=== PATIENT | female | born 1960 | race Caucasian/White ===

== ENCOUNTER 2018-08-28 08:53 | Inpatient (IN) | payer OTHER ==
[2018-08-28 10:11] LABS: Urine Blood NEGATIVE (NEG); Urine Glucose NEGATIVE (NEG); Urine Protein NEGATIVE (NEG); Urine pH 6.5 (5.0-7.0)
[2018-08-28 10:33] LABS: Absolute Monocytes 0.8 K/uL (0.1-1.3); Absolute Neutrophil 8.2 K/uL (1.8-8.0); Eosinophils % 1.7 % (0-4.4); Lymphocytes % 17.5 % (15.3-44.8); Monocytes % 6.7 % (3.3-12.3); RBC Red Blood Cell Count 3.81 M/uL (3.86-4.86)
[2018-08-28 10:36] LABS: Protime INR 1.01
--- NOTE | 2018-08-28 11:03 | RAD REPORT ---
EXAM DESCRIPTION: RAD - Chest Single View - 08/28/2018 10:42 am CLINICAL HISTORY: ABDOMINAL DISTENTION Chest pain. COMPARISON: No comparisons FINDINGS: Portable technique limits examination quality. The lungs are grossly clear. The heart is normal in size. No displaced fractures. IMPRESSION: No acute intrathoracic process suspected.
[2018-08-28] MEDS ORDERED: MORPHINE 4 MG/ML SYR ONE (11:43)
[2018-08-28] MEDS ORDERED: ONDANSETRON 4 MG/2 ML VIAL ONE (11:43)
[2018-08-28] MEDS ORDERED: METRONIDAZOLE 500mg IVPB 500 MG/100 ML BAG IV ONE (11:43)
[2018-08-28] MEDS ORDERED: NA CHLORIDE 0.9% 500 ML ONE (11:43)
[2018-08-28] MEDS ORDERED: CIPROFLOXACIN 400mg IV 400 MG/200 ML BAG IV ONE (11:43)
[2018-08-28] MEDS ORDERED: PANTOPRAZOLE 40 MG INJ ONE ×2 (11:43→12:05)
[2018-08-28 12:06] LABS: ALT/SGPT 13 U/L (12-78); AST/SGOT 12 U/L (15-37); Albumin 3.5 g/dL (3.4-5.0); Alkaline Phosphatase 107 U/L (45-117); BUN Blood Urea Nitrogen 9 mg/dL (7-18); Bicarbonate 27 mmol/L (21-32); Bilirubin Direct 0.1 mg/dL (0-0.2); Bilirubin Total 0.5 mg/dL (0.2-1.0); Glucose Level 93 mg/dL (74-106); Lipase 67 U/L (73-393); NT PRO-BNP 180 pg/mL (<125); Potassium 3.9 mmol/L (3.5-5.1); Protein, Total 7.7 g/dL (6.4-8.2); Sodium Level 141 mmol/L (136-145); Troponin (Emerg Dept Use Only) < 0.02 ng/mL (0.0-0.045)
--- NOTE | 2018-08-28 12:10 | ER ---
Nurse's Notes [facility] Name: Annalee Sanabria Age: 58 yrs Sex: Female : 1960 Arrival Date: 08/28/2018 Time: 08:54 Bed 13 Private MD: Diagnosis: Abdominal tenderness;Diarrhea, unspecified;Nausea;Diverticular disease of intestine-hx of;Urinary tract infection, site not specified;Diverticulitis of large intestine without perforation or abscess without bleeding-sigmoid Presentation: 08/28 09:10 Presenting complaint: N/D and lower abdominal pain x 2 days. Transition of care: hb patient was not received from another setting of care. Onset of symptoms was August 27, 2018. Risk Assessment: Do you want to hurt yourself or someone else? Patient reports no desire to harm self or others. Care prior to arrival: None. 09:10 Method Of Arrival: Ambulatory 09:10 Acuity: ALIYA 3 hb Historical: - Allergies: 09:12 PENICILLINS; hb - Home Meds: 09:12 amlodipine oral [Active]; Risperdal Oral [Active]; Metformin Oral [Active]; hb - PMHx: 09:12 Hypertension; hb - PSHx: 09:12 ovarian cyst; knee - left; ; hb - Family history:: not pertinent. Screenin:10 Abuse screen: Denies threats or abuse. Denies injuries from another. Nutritional sg screening: No deficits noted. Tuberculosis screening: No symptoms or risk factors identified. Never had TB. Fall Risk None identified. Assessment: 10:10 General: Appears in no apparent distress. uncomfortable, ill, slender, well groomed, sg well developed, well nourished, Behavior is calm, cooperative, appropriate for age. Pain: Complains of pain in left upper quadrant and left lower quadrant Quality of pain is described as aching, sharp. Neuro: Level of Consciousness is awake, alert, obeys commands, Oriented to person, place, time, Associate Merchandise Planner are equal bilaterally Moves all extremities. Speech is normal, Facial symmetry appears normal, Pupils are PERRLA. Cardiovascular: Patient's skin is warm and dry. Chest pain is denied. Respiratory: Airway is patent Respiratory effort is even, unlabored, Respiratory pattern is regular, symmetrical, Breath sounds are clear. GI: Abdomen is flat, non-distended, Bowel sounds present X 4 quads. Abd is soft X 4 quads Abdomen is tender to palpation X 4 quads. : No signs and/or symptoms were reported regarding the genitourinary system. EENT: No signs and/or symptoms were reported regarding the EENT system. Derm: Skin is pink, warm \T\ dry. Musculoskeletal: Circulation, motion, and sensation intact. Range of motion: intact in all extremities, Swelling absent. 10:45 Reassessment: Luana with CT notified pt finished PO contrast. sg 13:00 Reassessment: pt requesting motrin and something for diarrhea at this time, sg notified, educated pt on the use of NSAIDs and GI disorders, pt stated understanding, awaiting a bed assignment at this time. Vital Signs: 09:12 BP 138 / 87; Pulse 86; Resp 16; Temp 98.4; Pulse Ox 100% ; Pain 8/10; hb 10:20 BP 132 / 80; Pulse 86; Resp 17; Pulse Ox 99% on R/A; sg 12:00 BP 130 / 82; Pulse 87; Resp 17; Pulse Ox 100% on R/A; Pain 10/10; sg 15:05 BP 132 / 80; Pulse 87; Resp 16; Pulse Ox 99% on R/A; Pain 8/10; sg ED Course: 08:54 Patient arrived in ED. as 09:11 Triage completed. hb 09:12 Arm band placed on. hb 09:37 Quang Mcledo MD is Attending Physician. jazz 09:44 Dudley Gonzales, VICENTA is Primary Nurse. sg 10:03 Initial lab(s) drawn, by nh, Urine collected: clean catch specimen, cloudy, fidel jb1 colored. Inserted saline lock: 20 gauge in left antecubital area, using aseptic technique. Blood collected. 10:36 EKG done, by central sterile supply technician. reviewed by Quang Mcleod MD. sm3 10:42 XRAY Chest (1 view) In Process Unspecified. EDMS 12:08 Leanna Aguiar MD is Hospitalizing Provider. jazz 12:33 CT Abd/Pelvis - W/Contrast In Process Unspecified. EDMS Administered Medications: 11:40 Drug: ProTONIX 40 mg Route: IVP; Site: left antecubital; sg 11:40 Drug: Zofran 4 mg Route: IVP; Site: left antecubital; sg 11:45 Drug: NS 0.9% 500 ml Route: IV; Rate: bolus; Site: left antecubital; sg 11:50 Drug: Cipro 400 mg Volume: 200 ml; Route: IVPB; Infused Over: 60 mins; Site: left sg antecubital; 11:50 Drug: Flagyl 500 mg Volume: 100 ml; Route: IVPB; Rate: 200 ml/hr; Infused Over: 30 sg mins; Site: left antecubital; 12:45 Not Given (Patient Refused; currently being treated for drug addiction [facility]): sg morphine 4 mg IVP once 14:00 Drug: NS 0.9% 1000 ml Route: IV; Rate: 125 ml/hr; Site: left antecubital; Outcome: 12:09 Decision to Hospitalize by Provider. jazz 15:03 Admitted to Med/surg accompanied by tech, room 229, with chart, Report called to barb Luna RN 15:03 Condition: stable 15:03 Instructed on the need for admit, safety practices, Demonstrated understanding of instructions. 15:17 Patient left the ED. Signatures: Dispatcher [employer] EDDuran Phipps [email or web address] Dudley Gonzales RN RN sg Anderson, Corey, MD MD cha Martinez, Amelia as Baxter, Heather, RN RN hb Montes, Shakira sm3
--- NOTE | 2018-08-28 12:10 | EDPHYS ---
Physician Documentation [facility] Name: Annalee Sanabria Age: 58 yrs Sex: Female : 1960 Arrival Date: 08/28/2018 Time: 08:54 Bed 13 Private MD: ED Physician Quang Mcleod HPI: 08/28 10:15 This 58 yrs old Female presents to ER via Ambulatory with complaints of jazz Abdominal Pain. 10:15 The patient presents with abdominal pain in the lower abdomen, in the left upper jazz quadrant, in the left lower quadrant, abdominal distention in the upper abdomen, in the lower abdomen. Onset: The symptoms/episode began/occurred 2 day(s) ago. The patient presents to the emergency department with rectal bleeding, bright red blood with bowel movement, melena. Onset: The symptoms/episode began/occurred 2 day(s) ago. Abdominal pain: none is appreciated. Modifying factors: The symptoms are alleviated by remaining still, the symptoms are aggravated by movement, pressure. Associated signs and symptoms: The patient has no apparent associated signs or symptoms. Associated signs and symptoms: none. Modifying factors: The symptoms are alleviated by nothing, the symptoms are aggravated by touching the area, walking. Historical: - Allergies: 09:12 PENICILLINS; hb - Home Meds: 09:12 amlodipine oral [Active]; Risperdal Oral [Active]; Metformin Oral [Active]; hb - PMHx: 09:12 Hypertension; hb - PSHx: 09:12 ovarian cyst; knee - left; ; hb - Family history:: not pertinent. ROS: 10:15 Constitutional: Negative for fever, chills, and weight loss, Eyes: Negative for injury, jazz pain, redness, and discharge, ENT: Negative for injury, pain, and discharge, Neck: Negative for injury, pain, and swelling, Cardiovascular: Negative for chest pain, palpitations, and edema, Respiratory: Negative for shortness of breath, cough, wheezing, and pleuritic chest pain, Back: Negative for injury and pain, : Negative for injury, bleeding, discharge, and swelling, MS/Extremity: Negative for injury and deformity, Skin: Negative for injury, rash, and discoloration, Neuro: Negative for headache, weakness, numbness, tingling, and seizure, Psych: Negative for depression, anxiety, suicide ideation, homicidal ideation, and hallucinations, Allergy/Immunology: Negative for hives, rash, and allergies, Endocrine: Negative for neck swelling, polydipsia, polyuria, polyphagia, and marked weight changes, Hematologic/Lymphatic: Negative for swollen nodes, abnormal bleeding, and unusual bruising. 10:15 Abdomen/GI: Positive for abdominal pain, abdominal cramps, abdominal distension, rectal pain. Exam: 10:15 Constitutional: This is a well developed, well nourished patient who is awake, alert, jazz and in no acute distress. Head/Face: Normocephalic, atraumatic. Eyes: Pupils equal round and reactive to light, extra-ocular motions intact. Lids and lashes normal. Conjunctiva and sclera are non-icteric and not injected. Cornea within normal limits. Periorbital areas with no swelling, redness, or edema. ENT: Nares patent. No nasal discharge, no septal abnormalities noted. Tympanic membranes are normal and external auditory canals are clear. Oropharynx with no redness, swelling, or masses, exudates, or evidence of obstruction, uvula midline. Mucous membranes moist. Neck: Trachea midline, no thyromegaly or masses palpated, and no cervical lymphadenopathy. Supple, full range of motion without nuchal rigidity, or vertebral point tenderness. No Meningismus. Chest/axilla: Normal chest wall appearance and motion. Nontender with no deformity. No lesions are appreciated. Cardiovascular: Regular rate and rhythm with a normal S1 and S2. No gallops, murmurs, or rubs. Normal PMI, no JVD. No pulse deficits. Respiratory: Lungs have equal breath sounds bilaterally, clear to auscultation and percussion. No rales, rhonchi or wheezes noted. No increased work of breathing, no retractions or nasal flaring. Back: No spinal tenderness. No costovertebral tenderness. Full range of motion. Female : Normal external genitalia. Skin: Warm, dry with normal turgor. Normal color with no rashes, no lesions, and no evidence of cellulitis. MS/ Extremity: Pulses equal, no cyanosis. Neurovascular intact. Full, normal range of motion. Neuro: Awake and alert, GCS 15, oriented to person, place, time, and situation. Cranial nerves II-XII grossly intact. Motor strength 5/5 in all extremities. Sensory grossly intact. Cerebellar exam normal. Normal gait. Psych: Awake, alert, with orientation to person, place and time. Behavior, mood, and affect are within normal limits. 10:15 Abdomen/GI: Inspection: abdomen appears normal, Bowel sounds: normal, Palpation: mild abdominal tenderness, moderate abdominal tenderness, in the left upper quadrant and left lower quadrant, Liver: no appreciated palpable abnormalities, Hernia: not appreciated. 12:06 Abdomen/GI: Rectal exam: rectal tone normal, Stool: guaiac negative, hemorrhoid(s), are jazz not appreciated, mass, is not appreciated, swelling, is not appreciated, tenderness, is not appreciated. Vital Signs: 09:12 BP 138 / 87; Pulse 86; Resp 16; Temp 98.4; Pulse Ox 100% ; Pain 8/10; hb 10:20 BP 132 / 80; Pulse 86; Resp 17; Pulse Ox 99% on R/A; sg 12:00 BP 130 / 82; Pulse 87; Resp 17; Pulse Ox 100% on R/A; Pain 10/10; sg 15:05 BP 132 / 80; Pulse 87; Resp 16; Pulse Ox 99% on R/A; Pain 8/10; sg MDM: 09:37 Patient medically screened. [facility] 10:17 Data reviewed: vital signs, nurses notes, lab test result(s), EKG, radiologic studies, [facility] CT scan, plain films. 08/28 10:06 Order name: Urine Dipstick--Ancillary (enter results); Complete Time: 10:12 08/28 10:14 Order name: Basic Metabolic Panel; Complete Time: 13:12 [facility] 08/28 10:14 Order name: CBC with Diff; Complete Time: 11:59 [facility] 08/28 10:14 Order name: LFT's; Complete Time: 13:12 [facility] 08/28 10:14 Order name: Magnesium; Complete Time: 13:12 [facility] 08/28 10:14 Order name: NT PRO-BNP; Complete Time: 13:12 [facility] 08/28 10:14 Order name: PT-INR; Complete Time: 11:59 [facility] 08/28 10:14 Order name: Troponin (emerg Dept Use Only); Complete Time: 13:12 [facility] 08/28 10:14 Order name: XRAY Chest (1 view); Complete Time: 11:59 [facility] 08/28 10:14 Order name: Lipase; Complete Time: 13:12 [facility] 08/28 10:14 Order name: Type And Screen; Complete Time: 11:59 [facility] 08/28 10:14 Order name: CT Abd/Pelvis - W/Contrast; Complete Time: 13:12 [facility] 08/28 11:54 Order name: ABO/RH no charge; Complete Time: 11:59 EDMS 08/28 12:08 Order name: Occult Blood--Ancillary 08/28 10:14 Order name: EKG; Complete Time: 10:15 [facility] 08/28 10:14 Order name: Cardiac monitoring; Complete Time: 10:15 [facility] 08/28 10:14 Order name: EKG - Nurse/Tech; Complete Time: 11:39 [facility] 08/28 10:14 Order name: IV Saline Lock; Complete Time: 10:15 [facility] 08/28 10:14 Order name: Labs collected and sent; Complete Time: 10:15 [facility] 08/28 10:14 Order name: O2 Per Protocol; Complete Time: 10:15 [facility] 08/28 10:14 Order name: O2 Sat Monitoring; Complete Time: 10:15 [facility] Administered Medications: 11:40 Drug: ProTONIX 40 mg Route: IVP; Site: left antecubital; sg 11:40 Drug: Zofran 4 mg Route: IVP; Site: left antecubital; sg 11:45 Drug: NS 0.9% 500 ml Route: IV; Rate: bolus; Site: left antecubital; sg 11:50 Drug: Cipro 400 mg Volume: 200 ml; Route: IVPB; Infused Over: 60 mins; Site: left sg antecubital; 11:50 Drug: Flagyl 500 mg Volume: 100 ml; Route: IVPB; Rate: 200 ml/hr; Infused Over: 30 sg mins; Site: left antecubital; 12:45 Not Given (Patient Refused; currently being treated for drug addiction [facility]): sg morphine 4 mg IVP once 14:00 Drug: NS 0.9% 1000 ml Route: IV; Rate: 125 ml/hr; Site: left antecubital; sg Disposition: 08/28/18 12:09 Hospitalization ordered by Leanna Aguiar for Inpatient Admission. Preliminary diagnosis are Abdominal tenderness, Diarrhea, unspecified, Nausea, Diverticular disease of intestine - hx of, Urinary tract infection, site not specified, Diverticulitis of large intestine without perforation or abscess without bleeding - sigmoid. - Bed requested for Telemetry/MedSurg (Inpatient). - Status is Inpatient Admission. sg - Condition is Stable. - Problem is new. - Symptoms have improved. UTI on Admission? Yes Signatures: Dispatcher [employer] Chloe Guzman RN RN dw Gay, Steven, RN RN sg Anderson, Corey, MD MD cha Baxter, Heather, RN RN Corrections: (The following items were deleted from the chart) 13:13 12:09 Hospitalization Ordered by Leanna Aguiar MD for Inpatient Admission. Preliminary [facility] diagnosis is Abdominal tenderness; Diarrhea, unspecified; Nausea; Diverticular disease of intestine - hx of; Urinary tract infection, site not specified. Bed requested for Telemetry/MedSurg (Inpatient). Status is Inpatient Admission. Condition is Stable. Problem is new. Symptoms have improved. UTI on Admission? Yes. [facility] 14:12 13:13 08/28/2018 12:09 Hospitalization Ordered by Leanna Aguiar MD for Inpatient dw Admission. Preliminary diagnosis is Abdominal tenderness; Diarrhea, unspecified; Nausea; Diverticular disease of intestine - hx of; Urinary tract infection, site not specified; Diverticulitis of large intestine without perforation or abscess without bleeding - sigmoid. Bed requested for Telemetry/MedSurg (Inpatient). Status is Inpatient Admission. Condition is Stable. Problem is new. Symptoms have improved. UTI on Admission? Yes. [facility] 15:17 14:12 08/28/2018 12:09 Hospitalization Ordered by Leanna Aguiar MD for Inpatient sg Admission. Preliminary diagnosis is Abdominal tenderness; Diarrhea, unspecified; Nausea; Diverticular disease of intestine - hx of; Urinary tract infection, site not specified; Diverticulitis of large intestine without perforation or abscess without bleeding - sigmoid. Bed requested for Telemetry/MedSurg (Inpatient). Status is Inpatient Admission. Condition is Stable. Problem is new. Symptoms have improved. UTI on Admission? Yes.
--- NOTE | 2018-08-28 12:15 | EKG ---
Test Date: 2018-08-28 Test Time: 10:20:58 Logistics Planning Manager: DAMIÁN MEASUREMENT RESULTS: Intervals: Rate: 68 NE: 134 QRSD: 94 QT: 404 QTc: 429 [place]: P: 19 NE: 134 QRS: 63 T: 55 INTERPRETIVE STATEMENTS: Normal sinus rhythm Normal ECG No previous ECG available for comparison Electronically Signed On 08-28-18 12:14:23 CDT by Adam Rivas
--- NOTE | 2018-08-28 12:45 | RAD REPORT ---
EXAM DESCRIPTION: CTAbdomen Pelvis W Contrast - 08/28/2018 12:33 pm CLINICAL HISTORY: Abdominal pain. ABD PAIN COMPARISON: No comparisons TECHNIQUE: Biphasic CT imaging of the abdomen and pelvis was performed with 100 ml non-ionic IV cont rast. All CT scans are performed using dose optimization technique as appropriate and may include automated exposure control or mA/KV adjustment according to patient size. FINDINGS: The lung bases are clear. The liver, spleen, pancreas, adrenal glands and kidneys are within normal limits. No bowel obstruction, free air, free fluid or abscess. Prominent sigmoid diverticulosis is seen. Ther e is mild perihilar colonic inflammatory changes seen in the left lower quadrant surrounding the sigm oid colon compatible with mild/early acute diverticulitis. No peridiverticular abscess. The appendix is normal. No evidence of significant lymphadenopathy. No suspicious bony findings. IMPRESSION: Mild/early acute sigmoid diverticulitis is seen in the left lower quadrant.
[2018-08-28] MEDS ORDERED: NA CHLORIDE 0.9% 1,000 ML ONE (15:21)
[2018-08-28] MEDS ORDERED: ONDANSETRON 4 MG/2 ML VIAL IV PRN (15:44)
[2018-08-28] MEDS ORDERED: NA CHLORIDE 0.9% 1,000 ML IV SCH (15:44)
[2018-08-28] MEDS: INSULIN -REGULAR HUMAN 50 UNIT/0.5 ML ML SQ SCH ×2 (16:30→20:26)
[2018-08-28] MEDS: D5 0.45 NS 1,000 ML IV SCH (17:38)
--- NOTE | 2018-08-28 18:01 | P.HP ---
Certification for Inpatient Patient admitted to: Inpatient With expected LOS: >2 Midnights Practitioner: I am a practitioner with admitting privileges, knowledge of patient current condition, hospital course, and medical plan of care. Services: Services provided to patient in accordance with Admission requirements found in Title 42 Section 412.3 of the Code of Federal Regulations Patient History Date of Service: 08/28/18 Reason for admission: Diverticulitis History of Present Illness: This is a 58-year-old female with history of hypertension, diabetes type 2, bipolar, depression, paranoia, fibromyalgia admitted for abdominal pain for the past 4 days. Per patient, she started with abdominal pain 4600, along with black stools 2 days ago. The pain got worse last night. She also complains of diarrhea for the past 4 days. States that initially she had bright red blood, which now transition to black stools for the past 2 days. Also states that she was confused last night because she thinks she lost a lot of blood and she was feeling thirsty and had some chills. Endorsing some headache along with nausea. Denies any chest pain, shortness of breath, vision changes, speech changes or dizziness. She could not get any relief in the pain was so worse that she had to come to the ER. In the ER, her vital signs were stable at blood pressure of 138/87, pulse of 86, respirations of 16. She was noted to be afebrile at 98.4. Her labs were fairly unremarkable. Her CT of the abdomen showed early sigmoid diverticulitis in left lower quadrant. Chest x-ray was negative for any acute abnormalities. She received IV fluids, ciprofloxacin and Flagyl. At the time of my exam, she was alert oriented x3, in mild to moderate distress due to abdominal pain, hemodynamically stable. She stated that she had a headache because her blood sugars were so low because she is a diabetic and has not eating anything Allergies Penicillins Allergy (Verified 08/28/18 15:32) Rash Home Medications: Duloxetine [Cymbalta *] 20 mg PO BID 08/28/18 Lisinopril 10 mg PO DAILY 08/28/18 Metformin HCl 1,000 mg PO BID 08/28/18 risperiDONE [Risperidone] 1 mg PO DAILY 08/28/18 - Past Medical/Surgical History Has patient received pneumonia vaccine in the past: Yes Diabetic: Yes -: Genital Herpes -: Hypertension -: Diabetes -: Asthma -: Coccaine Abuse -: Ovarian cyst surgery -: Left Knee surgery -: Section - Family History Mother -: Heart disease, Hypertension, Diabetes, Kidney disease, Other (see notes) Notes: Edema, Gangrene - Social History Smoking Status: Current every day smoker Alcohol use: Yes CD- Drugs: Yes Caffeine use: Yes Review of Systems 10-point ROS is otherwise unremarkable Physical Examination - Vital Signs Temperature: 98.4 F Blood Pressure: 121/62 Pulse: 73 Respirations: 16 Pulse Ox (%): 98 - Physical Exam General: Alert, In no apparent distress, Oriented x3 HEENT: Atraumatic, PERRLA, Mucous membr. moist/pink, EOMI, Sclerae nonicteric Neck: Supple, 2+ carotid pulse no bruit, No LAD, Without JVD or thyroid abnormality Respiratory: Clear to auscultation bilaterally, Normal air movement Cardiovascular: Regular rate/rhythm, Normal S1 S2 Gastrointestinal: Normal bowel sounds, Non-distended, Rigidity, Tenderness Musculoskeletal: No tenderness Integumentary: No rashes Neurological: Normal speech, Normal strength at 5/5 x4 extr, Normal tone, Normal affect Lymphatics: No axilla or inguinal lymphadenopathy - Studies Laboratory Data (last 24 hrs) 08/28/18 10:00: PT 11.9, INR 1.01 08/28/18 10:00: WBC 11.2 H, Hgb 11.9 L, Hct 36.0, Plt Count 316 08/28/18 10:00: Sodium 141, Potassium 3.9, BUN 9, Creatinine 0.77, Glucose 93, Magnesium 2.0, Total Bilirubin 0.5, AST 12 L, ALT 13, Alkaline Phosphatase 107, Lipase 67 L Microbiology Data (last 24 hrs): 08/28/18 12:08 Stool Occult Blood - Final Assessment and Plan - Plan This is a 58-year-old female with: Sigmoid diverticulitis of left lower quadrant Keep NPO, IV analgesia, IV antibiotics IV fluids with D5 half-normal saline Abnormal urinalysis Pending cultures Currently on IV ciprofloxacin, which will provide coverage for now. Will make adjustments once cultures are back Melena Stool culture reported to be negative in the ER. H&H stable Will continue to monitor Hypertension Stable Will continue home medications [id number] diabetes mellitus type 2 Will continue home medications as tolerated Asthma Bipolar Paranoia Depression Neuropathy Fibromyalgia DVT prophylaxis: Lovenox GI prophylaxis: None Diet: Diabetic Disposition: Admit to floor. Pending symptomatic improvement Discharge Plan: Home - Advance Directives Does patient have a Living Will: No Does patient have a Durable POA for Healthcare: No Time Spent Managing Pts Care (In Minutes): 55
[2018-08-28] MEDS: CIPROFLOXACIN 400mg IV 400 MG/200 ML BAG IV SCH (20:20)
[2018-08-28] MEDS ORDERED: DULOXETINE 20 MG CAP PO SCH (21:00)
[2018-08-29] MEDS: METRONIDAZOLE 500mg IVPB 500 MG/100 ML BAG IV SCH ×3 (00:21→17:05)
[2018-08-29] MEDS: D5 0.45 NS 1,000 ML IV SCH ×2 (05:13→14:00)
[2018-08-29 05:21] LABS: Absolute Lymphocytes (CBC) 2.4 K/uL (0.7-4.9); Absolute Monocytes 0.8 K/uL (0.1-1.3); Absolute Neutrophil 5.7 K/uL (1.8-8.0); Basophils % 0.8 % (0-1.3); Eosinophils % 2.8 % (0-4.4); Lymphocytes % 25.8 % (15.3-44.8); Monocytes % 8.4 % (3.3-12.3)
[2018-08-29 05:42] LABS: Bilirubin Total 0.7 mg/dL (0.2-1.0); Protein, Total 6.9 g/dL (6.4-8.2)
[2018-08-29] MEDS: INSULIN -REGULAR HUMAN 50 UNIT/0.5 ML ML SQ SCH ×4 (07:30→20:36)
[2018-08-29] MEDS: ENOXAPARIN 40 MG/0.4 ML SQ SCH (09:05)
[2018-08-29] MEDS: CIPROFLOXACIN 400mg IV 400 MG/200 ML BAG IV SCH ×2 (09:05→20:47)
[2018-08-29 10:26] LABS: Urine Appearance CLEAR; Urine Bilirubin NEGATIVE (NEG); Urine Blood NEGATIVE (NEG); Urine Color YELLOW; Urine Glucose NEGATIVE (NEG); Urine Protein NEGATIVE (NEG); Urine Specific Gravity <=1.005 (1.005-1.030); Urine Urobilinogen 0.2 mg/dL (0.2-1.0); Urine pH 6.5 (5.0-7.0)
[2018-08-29 10:41] LABS: Urine Microscopic Reflex NO UMIC
[2018-08-29] MEDS: DULOXETINE 20 MG CAP PO SCH (11:19)
[2018-08-29] MEDS: LISINOPRIL 10 MG TAB PO SCH (11:19)
[2018-08-29] MEDS: RISPERIDONE 1 MG TABLET PO SCH (11:19)
[2018-08-29] MEDS ORDERED: HYDROCODONE/APAP 5/325 MG TAB PO PRN (16:17)
[2018-08-29] MEDS ORDERED: GLUCAGON 1 MG/VIAL IM PRN (16:27)
[2018-08-29] MEDS ORDERED: D50W 25 GM/50 ML SYRINGE IV PRN (16:27)
--- NOTE | 2018-08-29 21:00 | PN ---
Date of Progress Note: 08/29/2018 Subjective: The patient seen and examined. Chart reviewed and case discussed with RN. The patient is still having significant amount of pain. Has had some nausea, but no vomiting. Medications: List reviewed. Physical Examination: Vital Signs: Temperature 99.7, heart rate 65, blood pressure 127/59, respirations 16, O2 99% on room air. General: Awake, alert, oriented x3, in some mild distress, ill-appearing female. CV: S1, S2. No murmurs. Regular rate and rhythm. Peripheral pulses present. Respiratory: Moving air well bilaterally. No wheezing or stridor. Gastrointestinal: Abdomen is soft. Tenderness to palpation in the epigastric region. No rebound or guarding. Bowel sounds hypoactive. Extremities: No clubbing, cyanosis, or edema. Neurologic: Nonfocal. Laboratory Data: Sodium 141, potassium 4, chloride 110, CO2 28, BUN 5, creatinine 0.74, glucose 117, calcium 8.3, albumin 3. WBC 9.2, H and H 11.2 and 34, platelets 301. Occult blood is negative. St ool cultures pending. Assessment And Plan: A 58-year-old female with: 1.Sigmoid diverticulitis of the left lower quadrant. We will start on clear liquid diet. Continue with IV antibiotics and IV pain medications. 2.Abnormal urinalysis. No symptoms. Currently, the patient is being covered with IV antibiotics du e to diverticulitis. Follow up on cultures. 3.Melena. Hemoccult blood is negative. Hemoglobin and hematocrit are stable. We will continue to monitor. Unfortunately, no GI is available for consultation. 4.Essential hypertension, stable. We will continue with home medications as appropriate. 5.Diabetes mellitus type 2 qef-bmgwrda-hzbzjjgfv with hyperglycemia. Continue Accu-Cheks and monito r blood glucose levels with sliding scale insulin. 6.Cover with sliding scale insulin. 7.Asthma, intermittent. Use albuterol p.r.n. 8.Bipolar disorder. We will resume home medications. 9.Major depressive disorder. 10.Neuropathy. 11.Fibromyalgia. Plan: Restart home medications as appropriate. Advance diet. Continue IV antibiotics. Likely disc harge in the next 24-48 hours. SA/MODL Voice ID: [id number] Report ID: [id number]
[2018-08-30] MEDS: METRONIDAZOLE 500mg IVPB 500 MG/100 ML BAG IV SCH ×3 (00:30→16:55)
[2018-08-30] MEDS: D5 0.45 NS 1,000 ML IV SCH ×2 (00:30→10:00)
[2018-08-30 06:09] LABS: BUN Blood Urea Nitrogen 3 mg/dL (7-18); Bicarbonate 28 mmol/L (21-32); Glucose Level 127 mg/dL (74-106); Phosphorus 3.2 mg/dL (2.5-4.9); Potassium 3.9 mmol/L (3.5-5.1); Sodium Level 141 mmol/L (136-145)
[2018-08-30 06:13] LABS: Absolute Lymphocytes (CBC) 2.2 K/uL (0.7-4.9); Absolute Monocytes 0.6 K/uL (0.1-1.3); Absolute Neutrophil 3.3 K/uL (1.8-8.0); Basophils % 1.2 % (0-1.3); Eosinophils % 4.6 % (0-4.4); Hematocrit 33.5 % (36.0-45.0); Lymphocytes % 33.5 % (15.3-44.8); MPV 9.4 fL (7.6-11.3); Monocytes % 8.8 % (3.3-12.3); RBC Red Blood Cell Count 3.52 M/uL (3.86-4.86)
[2018-08-30] MEDS: INSULIN -REGULAR HUMAN 50 UNIT/0.5 ML ML SQ SCH ×4 (07:30→21:00)
[2018-08-30] MEDS ORDERED: POTASSIUM CL SA 10 MEQ TAB PO ONE (09:00)
[2018-08-30] MEDS: DULOXETINE 20 MG CAP PO SCH (09:42)
[2018-08-30] MEDS: CIPROFLOXACIN 400mg IV 400 MG/200 ML BAG IV SCH ×2 (09:42→21:31)
[2018-08-30] MEDS: RISPERIDONE 1 MG TABLET PO SCH (09:42)
[2018-08-30] MEDS: LISINOPRIL 10 MG TAB PO SCH (09:43)
[2018-08-30] MEDS: ENOXAPARIN 40 MG/0.4 ML SQ SCH (10:19)
--- NOTE | 2018-08-30 17:43 | PN ---
Date of Progress Note: 08/30/2018 Subjective: The patient seen and examined, chart reviewed and case discussed with RN. The patient s tates her pain is better, however, not completely resolved. Did have some nausea with liquid diet. Medications: List reviewed. Objective: Vital Signs: Temperature 97.6, heart rate 66, blood pressure 114/62, respirations 15, O2 99% on room air. GENERAL: Awake, alert, oriented x3, in some mild distress, ill-appearing female. CV: S1, S2. Regular rate and rhythm. Peripheral pulses present. Respiratory: Moving air well bilaterally. No wheezing or stridor. Gastrointestinal: Abdomen is soft. Mild tenderness to palpation. No guarding or rigidity, improved from yesterday. Bowel sounds positive. Extremities: No clubbing, cyanosis, or edema. Neurologic: Nonfocal. Laboratory Data: Sodium 141, potassium 3.9 chloride 109, CO2 28, BUN 3, creatinine 0.63, glucose 127 , calcium 8.2, phosphorus 3.2. WBC 6.4, H and H 10.9 and 33.5, platelets 306. Stool occult blood is negative. Stool cultures pending. Assessment: A 58-year-old female with: 1.Sigmoid diverticulitis, left lower quadrant. We will advance diet as tolerated. Pain has improve d. Continue intravenous antibiotics and intravenous analgesia. Encourage ambulation. 2.Abnormal urinalysis. Doubt urinary tract infection. No culture triggered. 3.Melena. Hemoccult blood negative. H and H remains stable at this time. We will continue to [facility]. No further bloody stools. The patient will need outpatient Gastroenterology followup. 4.Essential hypertension, stable. We will continue with home medications as appropriate. 5.Diabetes mellitus type 2, yly-gzbgtsz-qtrzftaof with hyperglycemia. Continue Accu-Cheks and monit or blood glucose levels with sliding scale insulin. Blood glucose levels have been ranging from 145 to 127. 6.Intermittent asthma. We will use albuterol p.r.n. 7.Bipolar disorder, stable, on home medications. 8.Major depressive disorder, single episode. Currently in remission. Continue SSRI. 9.Neuropathy. 10.Fibromyalgia. 11.Deep venous thrombosis prophylaxis with sequential compression devices. No chemical anticoagulat ion due to melena. Plan: Encourage ambulation. We will have PT consultation. DC Lovenox. Place on SCDs. Likely disc harge in the next 24 hours if tolerates diet. Outpatient GI followup. /MARIZA Voice ID: [id number] Report ID: [id number]
[2018-08-31] MEDS: METRONIDAZOLE 500mg IVPB 500 MG/100 ML BAG IV SCH ×2 (00:22→09:04)
[2018-08-31 06:01] LABS: Absolute Lymphocytes (CBC) 2.2 K/uL (0.7-4.9); Absolute Monocytes 0.6 K/uL (0.1-1.3); Absolute Neutrophil 3.3 K/uL (1.8-8.0); Basophils % 1.1 % (0-1.3); Eosinophils % 5.7 % (0-4.4); Hematocrit 33.3 % (36.0-45.0); MPV 9.1 fL (7.6-11.3); Monocytes % 8.8 % (3.3-12.3); RBC Red Blood Cell Count 3.52 M/uL (3.86-4.86)
[2018-08-31 06:22] LABS: Potassium 3.7 mmol/L (3.5-5.1)
[2018-08-31] MEDS: INSULIN -REGULAR HUMAN 50 UNIT/0.5 ML ML SQ SCH ×2 (07:30→11:30)
[2018-08-31] MEDS ORDERED: POTASSIUM CL SA 10 MEQ TAB PO ONE (09:00)
[2018-08-31] MEDS: CIPROFLOXACIN 400mg IV 400 MG/200 ML BAG IV SCH (09:04)
[2018-08-31] MEDS: DULOXETINE 20 MG CAP PO SCH (09:04)
[2018-08-31] MEDS: LISINOPRIL 10 MG TAB PO SCH (09:05)
[2018-08-31] MEDS: RISPERIDONE 1 MG TABLET PO SCH (09:06)
[2018-08-31] MEDS ORDERED: NA CHLORIDE 0.9% 250 ML ONE (09:22)
--- NOTE | 2018-09-01 03:25 | DS ---
Date of Discharge: 08/31/2018 Admitting Diagnoses: 1. Sigmoid diverticulitis, left lower quadrant, acute. 2. Abnormal UA. 3. Melena. 4. Essential hypertension. 5. Noninsulin-dependent diabetes with hyperglycemia. 6. Intermittent asthma. 7. Bipolar disorder. 8. Major depressive disorder, single episode, currently in remission. 9. Neuropathy. 10. Fibromyalgia. Discharge Diagnoses: 1. Sigmoid diverticulitis, acute, left lower quadrant. 2. Abnormal UA, culture negative. 3. Melena, resolved. 4. Essential hypertension, stable. 5. Diabetes mellitus type 2, sio-igjiuyr-dagyajmoz, with hyperglycemia. 6. Intermittent asthma, stable. 7. Bipolar disorder, stable. 8. Major depressive disorder, single episode, currently in remission. 9. Neuropathy. 10. Fibromyalgia. Hospital Course: The patient is a 58-year-old female with hypertension, diabetes, bipolar disorder, depression, fibromyalgia, comes in with abdominal pain. The patient has had GI workup done in the past and she was found to have acute sigmoid diverticulitis. She had some nausea, vomiting as well. The patient's abdominal pain was addressed. She was kept n.p.o., started on IV fluids. The patient was also started on IV antibiotics. Cultures were obtained. Stool cultures are pending. Hemoccult was negative. She did have melenic stool at home. No further melenic stools in the hospital. The patient did have an abnormal UA with trace leukocyte esterase, however, was not felt to be UTI. There was no dysuria or other symptoms regardless the patient was being covered with IV antibiotics. The patient did well over the course of the hospital stay. She did have slow recovery and initially did not tolerate advancing her diet. However, with antibiotics, time, and improvement, she was able to tolerate a GI soft diet. The patient states that she has had multiple bouts of diverticulitis. She will need surgical evaluation as an outpatient for possible elective surgery to prevent further bouts of diverticulitis. The patient was then doing better. She was able to ambulate, tolerate her diet, did not have any further abdominal pain. She was not throwing up her foods, able to tolerate her diet. She was afebrile. There were no signs of sepsis. Her WBC count had normalized. Her electrolytes were within normal limits. The patient was then cleared for discharge and was sent home in a stable condition. Finish up course of antibiotics. Medications: As per medication reconciliation list. Followup: Follow up with primary care physician in 2-3 days. Follow up with GI in 2 weeks. Return to ER for worsening condition. Follow up with general surgeon for possible elective surgery of the diverticulitis in the future. Diet: Wilber. Activity: As tolerated. Physical Examination: General: Awake, alert, oriented x3. No acute distress. CV: S1, S2. No murmurs. Respiratory: Moving air well bilaterally. No wheezing. Abdomen: Soft, nontender, nondistended. Positive bowel sounds. Extremities: No clubbing, cyanosis, or edema. Neurologic: Nonfocal. Total time spent discharging the patient was 34 minutes. /MARIZA Voice ID: [id number] Report ID: [id number]
== END 2018-08-31 13:02 | disposition home or self-care (01) | DRG 379 ==
LOC: ER 08:53 → ERHOLD 12:59 → 2ND 15:05
PROVIDERS: ADMIT Family Medicine; ATTEND Family Medicine
DX: K57.33 Diverticulitis of large intestine without perforation or abscess with bleeding (principal); R82.998 Other abnormal findings in urine; I10 Essential (primary) hypertension; E11.65 Type 2 diabetes mellitus with hyperglycemia; J45.20 Mild intermittent asthma, uncomplicated; F32.5 Major depressive disorder, single episode, in full remission; G62.9 Polyneuropathy, unspecified; M79.7 Fibromyalgia; Z88.0 Allergy status to penicillin
CPT/HCPCS: 36415; 71045; 74177; 80048; 80053; 80076; 81003; 82272; 82962; 83690; 83735; 83880; 84100; 84484; 85025; 85610; 86850; 86900; 86901; 87045; 87046; 93005; 94760; 96374; 96375; 97161; 99285; C9113; J0744; J1650; J2405; J7030; Q9967

== ENCOUNTER 2018-09-07 13:27 | Emergency (ER) | payer OTHER ==
--- OUTSIDE RECORDS SUMMARY | 2018-09-07 13:29 | XMS REPORT ---
:1960 [facility] [address] [place] [address] [place] [id number] Care Team Providers Name Role Phone TABATHA RODNEY Primary Care Provider Unavailable Problems This patient has no known problems. Allergies, Adverse Reactions, Alerts This patient has no known allergies or adverse reactions. Medications This patient has no known medications. Encounters Start End Encounter Admission Attending Care Care Encounter Date/Time Date/Time Type Type Clinicians Facility Department ID 2016-10-18 Inpatient [facility] [id number] 19:12:00 2017-05-01 2017-05-01 Emergency [facility] [id number] 02:20:07 02:20:07 2017-05-01 2017-05-01 Emergency [facility] [id number] 01:46:59 01:46:59
--- OUTSIDE RECORDS SUMMARY | 2018-09-07 13:31 | XMS REPORT ---
:1960 Author Organization [facility] Address Unavailable , Allergies, Adverse Reactions, Alerts Allergy Name Reaction Description Start Date Severity Status Provider PENICILLIN rash Moderate Active Helen Irvin MACHINIST 2ND SHIFT Conditions or Problems Problem Name Problem Onset Status Entry Provider Comment Standard Annotate Code Date Date Description SCHIZOAFFECTIV Active Lashaun Schizoaffective E DISORDER, 11/04 11/04 Cecelia STALLWORTH disorder, BIPOLAR TYPE unspecified STIMULANT USE Active Lashaun DISORDER, 11/04 11/04 Cecelia STALLWORTH COCAINE, MODERATE, SUSTAINED REMISSION Breast cysts, 610.1 Active Vargas Diffuse cystic bilateral 10/08 10/08 Naveed STALLWORTH mastopathy Overweight Active Marilou Overweight 10/08 10/08 Candy STALLWORTH Std screening V74.5 Active Marilou Screening 10/08 10/08 Candy examination for venereal disease Bacterial 616.10 Active Carolynn Vaginitis and vaginitis 09/07 09/07 Rodriguez vulvovaginitis, MACHINIST 2ND SHIFT unspecified UTI 599.0 Active Carolynn Urinary tract 09/07 09/07 Rodriguez infection, site MACHINIST 2ND SHIFT not specified High risk for V15.9 Active Vargas Unspecified osteoporosis 07/08 07/08 Naveed STALLWORTH personal history presenting hazards to health Screeing for V82.81 Active Vargas Screening for osteoporosis 07/08 07/08 Naveed STALLWORTH osteoporosis Breast pain, 611.71 Active Vargas Mastodynia right 06/25 06/25 Naveed STALLWORTH Vaccine V04.8 Active Vargas Need for against 06/25 06/25 Naveed STALLWORTH prophylactic influenza vaccination and inoculation against other viral diseases ALCOHOL USE 2015/1 Active Shelley Young DISORDER, 0 SCHEDULING COORDINATOR SEVERE BIPOLAR AND Active Shelley Young Bipolar RELATED SCHEDULING COORDINATOR disorder, DISORDER, unspecified UNSPECIFIED Abdominal 789.04 Active Vargas Abdominal pain, pain, left 10/29 10/31 Naveed STALLWORTH left lower lower quadrant quadrant Health V70.0 Active Betsy Routine general screening 10/29 10/29 [facility] medical RN examination at a health care facility HEALTH V70.0 Active Betsy Routine general SCREENING 06/17 06/17 [facility] medical RN examination at a health care facility CHEST PAIN 786.50 Active Marco Antonio Unspecified Klarberg chest pain MACHINIST 2ND SHIFT DIZZINESS 780.4 Active Carolynn Dizziness and 10/26 10/26 Rodriguez giddiness MACHINIST 2ND SHIFT HEADACHE 784.0 Active Carolynn Headache 10/26 10/26 Rodriguez MACHINIST 2ND SHIFT HEMATOCHEZIA 578.1 Active Carolynn Blood in stool 10/26 10/26 Rodriguez MACHINIST 2ND SHIFT PREVENTIVE V70.0 Active Carolynn Routine general HEALTH CARE 10/26 10/26 Rodriguez medical MACHINIST 2ND SHIFT examination at a health care facility PERIPHERAL 356.9 Active Irene Unspecified NEUROPATHY 10/10 10/10 Matthew STALLWORTH hereditary and idiopathic peripheral neuropathy ALCOHOL 303.90 Active Lashaun Other and DEPENDENCE 08/20 08/20 Cecelia STALLWORTH unspecified alcohol dependence, unspecified drinking behavior BIPOLAR 296.80 Active Helen Bipolar DISORDER 08/10 08/10 Irvin disorder, UNSPECIFIED MACHINIST 2ND SHIFT unspecified Diabetes 250.00 Active Vargas Diabetes mellitus, type 08/10 07/08 Naveed STALLWORTH mellitus without II mention of complication, type II or unspecified type, not stated as uncontrolled DRUG ABUSE, HX V15.89 Active Helen Other specified OF 08/10 08/10 Irvin personal history MACHINIST 2ND SHIFT presenting hazards to health HYPERLIPIDEMIA 272.4 Active Helen Other and 08/10 08/10 Irvin unspecified MACHINIST 2ND SHIFT hyperlipidemia HYPERTENSION 401.9 Active Helen Unspecified 08/10 08/10 Irvin essential MACHINIST 2ND SHIFT hypertension OBESITY 278.00 Active Helen Obesity, 08/10 08/10 Irvin unspecified MACHINIST 2ND SHIFT PASSIVE SMOKE E869.4 Active Helen Accidental EXPOSURE 08/10 Irvin poisoning from MACHINIST 2ND SHIFT second-hand tobacco smoke TOBACCO USER 305.1 Active Lashaun Tobacco use 03/06 Cecelia STALLWORTH disorder COCAINE ABUSE 305.60 Inactive Carolynn Cocaine abuse, 08/20 10/26 Rodriguez unspecified use MACHINIST 2ND SHIFT COCAINE ABUSE ICD-305.60 Inactive Carolynn Rodriguez MACHINIST 2ND SHIFT DIABETES 250.02 Inactive Helen Diabetes mellitus MELLITUS, TYPE Irvni MACHINIST 2ND SHIFT without mention II, UNCONTROLLED of complication, type II or unspecified type, uncontrolled WELL WOMAN V70.0 Inactive Helen Routine general Irvin MACHINIST 2ND SHIFT medical examination at a health care facility WELL WOMAN ICD-V70.0 Inactive Helen Irvin MACHINIST 2ND SHIFT UTI ICD-599.0 Inactive Carolynn Rodriguez MACHINIST 2ND SHIFT UTI 599.0 09/17/2013 Resolved Carolynn Dunnpard MACHINIST 2ND SHIFT Urinary tract infection, site not specified Medication List Medication Instructions Start Stop Generic NDC Status Provider Patient Date Date Name Instruction TYLENOL 1 by ACETAMINOPHEN-CODEINE [id number] Active Tee Active WITH mouth Jacinto CODEINE every 4 DDS #3 300-30 hours as MG ORAL needed TABLET TYLENOL 1 by ACETAMINOPHEN-CODEINE [id number] Active Tee Active WITH mouth Jacinto CODEINE every 4 DDS #3 300-30 hours as MG ORAL needed TABLET NEBULIZER use as NEBULIZERS 06847167965 Active Ketty Active directed Kamala - include - face mask and accessor ies required for use. ICD 10 -- ALBUTEROL 1 via ALBUTEROL SULFATE [id number] Active Vargas Active SULFATE Hand Lucio (2.5 held neb MD MG/3ML) every 4 0.083% - 6 INHALATIO hours as N needed NEBULIZAT ION SOLUTION AMITRIPTY 1 by AMITRIPTYLINE HCL 91391568658 Active Vargas Active LINE HCL mouth Lucio 25 MG nightly MD ORAL at TABLET bedtime CIPRO 500 1 by CIPROFLOXACIN HCL 68726170772 Active Carolynn Active MG ORAL mouth Rodriguez TABLET twice a MACHINIST 2ND SHIFT day FLAGYL 1 tab by METRONIDAZOLE 56823355615 Active Carolynn Active 500 MG mouth Rodriguez ORAL twice a MACHINIST 2ND SHIFT TABLET day for 7 days DULOXETIN one By DULOXETINE HCL 72897503404 Active Zishan Active E HCL 30 Mouth Samiudd MG ORAL Every in MD CAPSULE Day DELAYED RELEASE PARTICLES GABAPENTI 1 by GABAPENTIN 31851258232 Active Yoana Active N 100 MG mouth e Cecelia ORAL Twice a MD CAPSULE Day ADVAIR 1 puff FLUTICASONE-SALMETEROL 07857294470 Active Vargas Active DISKUS BID Lucio 250-50 MD MCG/DOSE INHALATIO N AEROSOL POWDER BREATH ACTIVATED ENALAPRIL 1 by ENALAPRIL MALEATE 43929656547 Active Vargas Active MALEATE mouth Lucio 10 MG every MD ORAL day TABLET RISPERIDO one By RISPERIDONE 70495063529 Active Yoana Active NE 1 MG Mouth e Cecelia ORAL Twice a MD TABLET Day MECLIZINE 1 by MECLIZINE HCL 04158094665 Active Carolynn Active HCL 25 MG mouth 3 Rodriguez ORAL times a MACHINIST 2ND SHIFT TABLET day as needed CLINDAMYCIN one CLINDAMYCIN 771366 CLINDAMYCIN Inactive HCL 300 MG tablet HCL 300 MG HCL ORAL CAPSULE by mouth ORAL CAPSULE every 8 hours LATUDA 40 MG one By LATUDA 40 MG LURASIDONE Inactive ORAL TABLET Mouth ORAL TABLET HCL Every Day AMITRIPTYLINE 1 by AMITRIPTYLINE 010433 AMITRIPTYLINE Inactive HCL 25 MG mouth HCL 25 MG HCL ORAL TABLET nightly ORAL TABLET at bedtime OLANZAPINE 5 one By OLANZAPINE 5 [id number] OLANZAPINE Inactive MG ORAL Mouth MG ORAL TABLET take at TABLET bedtime for one week then increase to 10mg take at bedtime if tolerate d ENALAPRIL Takes 1 ENALAPRIL 627253 ENALAPRIL Inactive MALEATE 5 MG tab MALEATE 5 MG MALEATE ORAL TABLET daily ORAL TABLET CLINDAMYCIN one CLINDAMYCIN 85367043543 No Tee Active HCL 300 MG tablet HCL Longer Jacinto ORAL CAPSULE by Active DDS mouth every 8 hours LATUDA 40 MG one By LURASIDONE 32235247892 No Yoana Active ORAL TABLET Mouth HCL Longer e Cecelia Every Active MD Day AMITRIPTYLIN 1 by AMITRIPTYLIN 87436934764 No Yoana Active E HCL 25 MG mouth E HCL Longer e Cecelia ORAL TABLET nightly Active MD at bedtime OLANZAPINE 5 one By OLANZAPINE 02601909629 No Yoana Active MG ORAL Mouth Longer e Cecelia TABLET take at Active MD bedtime for one week then increas e to 10mg take at bedtime if tolerat ed ENALAPRIL Takes 1 ENALAPRIL 01242406952 No Marco Antonio Active MALEATE 5 MG tab MALEATE Longer Klarber ORAL TABLET daily Active g MACHINIST 2ND SHIFT Advance Directives Directive Description Start Date DISCUSSED - NO DECISION MADE Immunizations Vaccine Administration Date Value Standard Description influenza immunization given influenza virus vaccine, (Flu Vax) has been unspecified formulation administered pneumococcal given elsewhere pneumococcal immunization polysaccharide vaccine, administered 23 valent influenza immunization given influenza virus vaccine, (Flu Vax) has been unspecified formulation administered PEDIATRIC PNEUMOCOCCAL given pneumococcal conjugate VACCINE ([id number]) #1 vaccine, 13 valent Vital Signs Date Name Value Unit Range Description blood pressure, diastolic 76 mm[Hg] BP jones blood pressure, systolic 111 mm[Hg] BP sys height E&M 60 [in_us] Bdy height pulse rate E&M 94 /min Heart rate weight E&M 179.38 [lb_av] Weight Measured blood pressure, diastolic 76 mm[Hg] BP jones blood pressure, systolic 114 mm[Hg] BP sys height E&M 60 [in_us] Bdy height pulse rate E&M 85 /min Heart rate weight E&M 176 [lb_av] Weight Measured Diagnostic Results Date Name Value Unit Range Description Lab Report: Prolactin, RPR, Rfx Qn RPR/Confirm TP, Panel [id number], HCV Ant ... - Serology hepatitis C antibody, serum <0.1 0.0-0.9 Lab Report: UA/M w/rflx Culture, Routine, Microscopic Examination, UA/M ... - Urinalysis pH, urine, semiquantitative 6.0 5.0-7.5 epithelial cells, urine >10 /[LPF] 0 - 10 Lab Report: CBC With Differential/Platelet, Comp. Metabolic Panel (14), ... - Hematology lymphocyte count, blood, automated 4.2 X10E3/UL 10*3/mm3 0.7- 3.1 Lab Report: UA/M w/rflx Culture, Routine, Microscopic Examination, UA/M ... - Urinalysis bilirubin, urine Negative Negative Lab Report: CBC With Differential/Platelet, Comp. Metabolic Panel (14), ... - Chemistry urea nitrogen, blood 10 mg/dL 6-24 Nurse Visit: Nurse Visit - Toxicology tricyclic antidrepressants, urine Negative Lab Report: CBC With Differential/Platelet, Comp. Metabolic Panel (14), ... - Chemistry creatinine, serum 0.77 mg/dL 0.57-1.00 chloride, serum 100 mmol/L 96-106 Lab Report: CBC With Differential/Platelet, Comp. Metabolic Panel (14), ... - Hematology mean corpuscular volume, RBC 96 fL 79-97 Lab Report: CBC With Differential/Platelet, Comp. Metabolic Panel (14), ... - Chemistry triglyceride, serum, fasting 168 mg/dL 0-149 Lab Report: CBC With Differential/Platelet, Comp. Metabolic Panel (14), ... - Hematology erythrocyte (RBC) count 4.16 X10E6/UL 10*6/mm3 3.77-5.28 Lab Report: CBC With Differential/Platelet, Comp. Metabolic Panel (14), ... - Chemistry Estimated Glomerular Filtration Rate (calc) 87 mL/min/1.73m2 > 59 Lab Report: UA/M w/rflx Culture, Routine, Microscopic Examination, UA/M ... - Urinalysis appearance, urine Cloudy Clear Lab Report: CBC With Differential/Platelet, Comp. Metabolic Panel (14), ... - Hematology platelet count 324 X10E3/UL 10*3/mm3 150-379 Lab Report: CBC With Differential/Platelet, Comp. Metabolic Panel (14), ... - Serology HIV-1/HIV-2 Ab, serum Non Reactive Non Reactive Lab Report: CBC With Differential/Platelet, Comp. Metabolic Panel (14), ... - Hematology red blood cell distribution width 15.5 % 12.3-15.4 Lab Report: CBC With Differential/Platelet, Comp. Metabolic Panel (14), ... - Chemistry protein, total, serum 7.8 g/dL 6.0-8.5 HDL cholesterol, serum 46 mg/dL >39 Lab Report: UA/M w/rflx Culture, Routine, Microscopic Examination, UA/M ... - Urinalysis mucus on urinalysis Present Not Estab. Lab Report: Prolactin, RPR, Rfx Qn RPR/Confirm TP, Panel [id number], HCV Ant ... - Chemistry prolactin, serum 6.4 ng/mL 4.8-23.3 Lab Report: UA/M w/rflx Culture, Routine, Microscopic Examination, UA/M ... - Chemistry specific gravity, body fluid 1.023 1.005-1.030 Lab Report: UA/M w/rflx Culture, Routine, Microscopic Examination, UA/M ... - Urinalysis glucose, urine, semiquantitative Negative Negative Lab Report: CBC With Differential/Platelet, Comp. Metabolic Panel (14), ... - Hematology eosinophils as percent of blood leukocytes 7 % Not Estab. Lab Report: CBC With Differential/Platelet, Comp. Metabolic Panel (14), ... - Chemistry albumin/globulin ratio, serum 1.3 1.2-2.2 Absolute Neutrophils 5.3 X10E3/UL 10*3/uL 1.4-7.0 microalbumin/creatinine ratio, urine 3.6 MG/G CREAT ug/mg 0.0- 30.0 Lab Report: [id number] 7+Alc-Unbund - Toxicology amphetamine screen, urine Negative [id number] Lab Report: CBC With Differential/Platelet, Comp. Metabolic Panel (14), ... - Hematology basophil count, absolute 0.1 x10E3/uL 0.0-0.2 Lab Report: CBC With Differential/Platelet, Comp. Metabolic Panel (14), ... - Chemistry alanine aminotransferase (SGPT), serum 67 U/L 0-32 LDL cholesterol, serum 118 mg/dL 0-99 Office Visit: Acute Visit/rm5 - Urinalysis nitrite, urine, semiquantitative positive Lab Report: CBC With Differential/Platelet, Comp. Metabolic Panel (14), ... - Hematology monocytes as percent of blood leukocytes 7 % Not Estab. Lab Report: [id number] 7+Alc-Unbund - Toxicology phencyclidine screen, urine Negative ng/mL Cutoff=25 opiate screen, urine Negative Jihjfd=598 Lab Report: Pap IG, rfx HPV ASCU, HPV, high-risk - Lab Human Papillomavirus test result HPVTested Lab Report: Prolactin, RPR, Rfx Qn RPR/Confirm TP, Panel [id number], HCV Ant ... - Urinalysis urine culture No growth Nurse Visit: Nurse Visit - Urinalysis morphine drug screen, urine Negative Nurse Visit: Nurse Visit - Chemistry propoxyphene screen, urine Negative Lab Report: CBC With Differential/Platelet, Comp. Metabolic Panel (14), ... - Chemistry cholesterol, serum 198 mg/dL 100-199 Lab Report: UA/M w/rflx Culture, Routine, Microscopic Examination, UA/M ... - Basic Occult Blood, urine Negative Negative Lab Report: CBC With Differential/Platelet, Comp. Metabolic Panel (14), ... - Hematology mean corpuscular hemoglobin concentration, RBC 33.0 G/DL % 31.5- 35.7 Lab Report: UA/M w/rflx Culture, Routine, Microscopic Examination, UA/M ... - Urinalysis leukocyte esterase, urine, by dipstick 2+ Negative Lab Report: CBC With Differential/Platelet, Comp. Metabolic Panel (14), ... - Hematology hemoglobin, blood 13.2 g/dL 11.1-15.9 Lab Report: UA/M w/rflx Culture, Routine, Microscopic Examination, UA/M ... - Urinalysis urinalysis, microscopic examination See below: Lab Report: CBC With Differential/Platelet, Comp. Metabolic Panel (14), ... - Hematology leukocyte count, blood 11.2 X10E3/UL 10*3/mm3 3.4-10.8 Nurse Visit: Nurse Visit - Urinalysis Oxycodone urine screening Negative Lab Report: QuantiFERON TB Gold (In Tube), QuantiFERON In Tube - Hematology Quantiferon Gold TB blood test for tuberculosis Positive Negative screening Lab Report: UA/M w/rflx Culture, Routine, Microscopic Examination, UA/M ... - Urinalysis protein, urine, semiquantitative (dipstick) Trace Negative/ Trace Lab Report: CBC With Differential/Platelet, Comp. Metabolic Panel (14), ... - Hematology hematocrit, blood 40.0 % 34.0-46.6 Lab Report: CBC With Differential/Platelet, Comp. Metabolic Panel (14), ... - Chemistry globulin, serum 3.4 1.5-4.5 Lab Report: UA/M w/rflx Culture, Routine, Microscopic Examination, UA/M ... - Urinalysis bacteria, urine microscopy Many None seen/Few Lab Report: [id number] 7+Alc-Unbund - Toxicology barbiturates screen, urine Negative Hqkyfy=414 Lab Report: CBC With Differential/Platelet, Comp. Metabolic Panel (14), ... - Chemistry vitamin D 25-hydroxy, serum 19.9 ng/mL 30.0-100.0 Lab Report: CBC With Differential/Platelet, Basic Metabolic Panel (8), L ... - Chemistry thyroid stimulating hormone, serum 3.490 u[iU]/mL 0.450-4.500 Lab Report: CBC With Differential/Platelet, Comp. Metabolic Panel (14), ... - Chemistry albumin, serum 4.4 g/dL 3.5-5.5 Nurse Visit: Nurse Visit - Urinalysis Ecstasy (MDMA) Screen, urine Negative Internal Correspondence: Pre-Visit Planning 03/13/2014 @ 9:00AM #DISC. - Other List of providers caring for Irene Castro MD, Duran Fermin MD, patient Kathy Romeochristie STALLWORTH, Jennifer Pradhan MACHINIST 2ND SHIFT, Marco Antonio Mckeon MACHINIST 2ND SHIFT, Len Marie AMMUNITION COMPONENTS INSPECTOR-C, Anisa Patino MA, Jaden Mahmood MA, Suzan Dent MA, Yvonne Mcleod MA, Luana Schmitz MA, Brian Jaeger MA, Yuki Ricardo MA, Sonia Mercer CTA, Angely Montano CTA. Lab Report: CBC With Differential/Platelet, Comp. Metabolic Panel (14), ... - Chemistry very low density lipoproteins 34 mg/dL 5-40 Lab Report: UA/M w/rflx Culture, Routine, Microscopic Examination, UA/M ... - Urinalysis urobilinogen, urine, semiquantitative (dipstick) 1.0 0.2-1.0 Lab Report: CBC With Differential/Platelet, Comp. Metabolic Panel (14), ... - Hematology basophils as percent of blood leukocytes 1 % Not Estab. Lab Report: CBC With Differential/Platelet, Comp. Metabolic Panel (14), ... - Chemistry calcium, serum 9.8 mg/dL 8.7-10.2 Lab Report: CBC With Differential/Platelet, Comp. Metabolic Panel (14), ... - Urinalysis microalbumin/total urine volume 3.8 mg/L 0.0-17.0 Lab Report: CBC With Differential/Platelet, Comp. Metabolic Panel (14), ... - Hematology monocyte count, blood, automated 0.8 X10E3/UL 10*3/uL 0.1-0.9 Lab Report: CBC With Differential/Platelet, Comp. Metabolic Panel (14), ... - Chemistry urea nitrogen/creatinine ratio, serum 13 9-23 immature granulocytes, percentage of total cells, blood 0 % Not Estab. Lab Report: CBC With Differential/Platelet, Comp. Metabolic Panel (14), ... - Genetics/fertility eGFR if 101 mL/min/1.73m2 >59 Lab Report: UA/M w/rflx Culture, Routine, Microscopic Examination, UA/M ... - Urinalysis WBC urine on microscopy 11-30 /hpf {Cells}/[HPF] 0 - 5 Nurse Visit: Nurse Visit - Toxicology opiates, urine, semiquantitative Negative Lab Report: CBC With Differential/Platelet, Comp. Metabolic Panel (14), ... - Hematology lymphocytes as percent of blood leukocytes 38 % Not Estab. Lab Report: UA/M w/rflx Culture, Routine, Microscopic Examination, UA/M ... - Chemistry RBC, Urine 0-2 /hpf /[HPF] 0 - 2 Lab Report: CBC With Differential/Platelet, Comp. Metabolic Panel (14), ... - Chemistry carbon dioxide, venous blood 24 mmol/L 18-29 Lab Report: Prolactin, RPR, Rfx Qn RPR/Confirm TP, Panel [id number], HCV Ant ... - Serology rapid plasma reagin antibody, serum Non Reactive Non Reactive Lab Report: Vaginitis/Vaginosis, DNA Probe, Chlamydia/GC Amplification - Lab chlamydia DNA probe Negative Negative Lab Report: Vaginitis/Vaginosis, DNA Probe, Chlamydia/GC Amplification - Microbiology Neisseria gonorrhoeae DNA probe Negative Negative Lab Report: CBC With Differential/Platelet, Comp. Metabolic Panel (14), ... - Chemistry sodium, serum 141 mmol/L 657-136 5527/10/06 hemoglobin A1C, blood, as % of total hemoglobin 7.5 % 4.8-5.6 alkaline phosphatase, serum 121 U/L 39-117 Lab Report: UA/M w/rflx Culture, Routine, Microscopic Examination, UA/M ... - Urinalysis ketones, urine, by test strip Trace Negative Nurse Visit: Nurse Visit - Urinalysis Methadone screen, urine Negative Lab Report: CBC With Differential/Platelet, Comp. Metabolic Panel (14), ... - Hematology Eosinophil Absolute Count 0.8 X10E3/UL 10*3/uL 0.0-0.4 Office Visit: Acute Visit/5 - Urinalysis specific gravity, urine 1.015 Lab Report: [id number] 7+Alc-Unbund - Toxicology benzodiazepine screen, urine Negative Najxvg=[id number] cannabinoid screen, urine Negative ng/mL Cutoff=50 Lab Report: CBC With Differential/Platelet, Comp. Metabolic Panel (14), ... - Hematology mean corpuscular hemoglobin, RBC 31.7 pg 26.6-33.0 Lab Report: Vaginitis/Vaginosis, DNA Probe, Chlamydia/GC Amplification - Urinalysis trichomonas vaginalis, urine Negative Negative Lab Report: CBC With Differential/Platelet, Comp. Metabolic Panel (14), ... - Chemistry creatinine, random, urine 107.0 mg/dL 15.0-278.0 bilirubin, serum, total 0.4 mg/dL 0.0-1.2 Lab Report: CBC With Differential/Platelet, Comp. Metabolic Panel (14), ... - Hematology neutrophils as percent of blood leukocytes 47 % Not Estab. Lab Report: UA/M w/rflx Culture, Routine, Microscopic Examination, UA/M ... - Chemistry nitrate, urine Positive Negative Office Visit: Acute Visit/rm5 - Urinalysis blood in urine (hemoglobin) by dipstick negative Lab Report: CBC With Differential/Platelet, Comp. Metabolic Panel (14), ... - Chemistry potassium, serum 4.8 mmol/L 3.5-5.2 blood glucose, random 102 mg/dL 65-99 Lab Report: [id number] 7+Alc-Unbund - Urinalysis Ethanol screen urine Negative Cutoff=0.020 Lab Report: CBC With Differential/Platelet, Comp. Metabolic Panel (14), ... - Chemistry aspartate aminotransferase (SGOT), serum 86 U/L 0-40 Lab Report: UA/M w/rflx Culture, Routine, Microscopic Examination, UA/M ... - Urinalysis urine color OR Yellow Encounters Date Encounter Provider Code Facility Est Patient Detailed Lashaun Rai MD CPT-07941 [facility] 10:51:51 CDT - 14772 Est Patient Detailed Lashaun Rai MD CPT-06339 [facility] 11:31:47 CDT - 28384 Est Patient Exp Lashaun Rai MD CPT-15848 [facility] 11:06:08 CDT Problem - 11453 Est Patient Exp Lashaun Rai MD CPT-95085 [facility] 11:05:34 CDT Problem - 25596 Est Patient Exp Lashaun Rai MD CPT-64139 [facility] 10:44:34 CDT Problem - 62087 Est Patient Exp Vargas Lucio MD CPT-19021 [facility] 19:55:32 CDT Problem - 93865 Est Patient Problem Marilou Gupta MD CPT-98450 [facility] 14:24:37 CDT Focus - 28192 SHEAR OPERATOR AUTOMATIC Est Patient Exp Marilou Gupta MD CPT-83634 [facility] 13:16:34 CDT Problem - 36201 SHEAR OPERATOR AUTOMATIC Ofc Vst, Est Level Carolynn Rodriguez MACHINIST 2ND SHIFT CPT-28271 [facility] 11:53:40 CDT III Est Patient Detailed Vargas Lucio MD CPT-22501 [facility] 10:33:53 ERP ENGINEER - 06982 Est Patient Exp Vargas Lucio MD CPT-93631 [facility] 10:45:43 ERP ENGINEER Problem - 74071 Est Patient Exp Lashaun Rai MD CPT-85844 [facility] 11:21:49 CDT Problem - 88365 Ofc Vst, Est Level Vargas Lucio MD CPT-39461 [facility] 14:13:09 CDT IV Est Patient Exp Lashaun Rai MD CPT-71106 [facility] 11:05:19 CDT Problem - 94161 Est Patient Nurse - Betsy Downing RN CPT-07947 [facility] 12:15:19 CDT Only Visit - 42081 Est Patient Exp Lashaun Rai MD CPT-73582 [facility] 11:35:22 ERP ENGINEER Problem - 23552 Est Patient Exp Lashaun Rai MD CPT-21986 [facility] 13:15:03 ERP ENGINEER Problem - 69141 Est Patient Exp Lashaun Rai MD CPT-39937 [facility] 11:00:22 ERP ENGINEER Problem - 02854 Est Patient Nurse - Betsy Downing RN CPT-72413 [facility] 13:59:58 ERP ENGINEER Only Visit - 57662 Est Patient Problem Marco Antonio Mckeon MACHINIST 2ND SHIFT CPT-80736 [facility] 12:41:27 ERP ENGINEER Focus - 75945 Est Patient Exp Marco Antonio Mckeon MACHINIST 2ND SHIFT CPT-74015 [facility] 09:45:08 CDT Problem - 42314 Est Patient Exp Lashaun Rai MD CPT-13364 [facility] 08:48:48 CDT Problem - 42827 Est Patient Exp Lashaun Rai MD CPT-79745 [facility] 15:58:07 CDT Problem - 23714 Est Patient Exp Lashaun Rai MD CPT-76164 [facility] 09:30:29 CDT Problem - 00429 Est Patient Exp Lashaun Rai MD CPT-55368 [facility] 09:38:20 CDT Problem - 74960 Health Est Patient Exp Lashaun Rai MD CPT-17038 [facility] 09:17:39 CDT Problem - 29462 Ofc Vst, Est Level Carolynn Rodriguez MACHINIST 2ND SHIFT CPT-09297 [facility] [facility] Adult Medicine 11:39:34 CDT IV Est Patient Problem Lashaun Rai MD CPT-70651 [facility] Behavioral Health 09:31:32 CDT Focus - 48633 Ofc Vst, Est Level Irene Castro MD CPT-54488 [facility] Adult Medicine 10:06:43 CDT III Est Patient Exp Marco Antonio Mckeon MACHINIST 2ND SHIFT CPT-22766 [facility] Adult Medicine 17:03:58 CDT Problem - 30911 Ofc Vst, New Level Helen Irvin MACHINIST 2ND SHIFT CPT-65789 [facility] SHEAR OPERATOR AUTOMATIC 12:49:35 ERP ENGINEER III Procedures Code Procedure Name Date Entry Date Standard Description CPT-06755 Urine Drug Screen - In [place] 10:51:54 CDT CPT-81992 Psychotherapy 45 (38-52*) min - 37233 (with patient 09:27:28 CDT and/or family member) CPT-13895 Psychotherapy 30 (16-37*) min - 48436 (with patient 09:47:37 CDT and/or family member) CPT-57212 Diagnostic evaluation (no medical) - 94248 08:06:17 CDT CPT-38951 Influenza - Adult - Injection 10:45:53 ERP ENGINEER CPT-96506 Admin of Vaccine - Injection - 1 10:45:53 ERP ENGINEER CPT-49483 Group Psychotherapy - 40036 22:11:40 CDT CPT-61040 Group Psychotherapy - 50783 12:01:03 CDT CPT-34941 Prevnar (PCV13) IM 08:39:36 CDT CPT-64185 Influenza - Adult - Injection 08:39:36 CDT CPT-32825 EKG - Tracing Only 09:45:08 CDT CPT-92946 Urine Drug Screen - In House 09:31:32 CDT CPT-92563 Glucose Stick 10:06:43 CDT CPT-71800 Urinalysis - Dip only - In [place] 10:06:43 CDT CPT-81975 Urine Drug Screen - In [place] 10:14:54 CDT CPT-41586 Diagnostic evaluation with medical - 95050 10:14:54 CDT CPT-18158 Handling of specimen for transfer 12:49:35 ERP ENGINEER CPT-96721 Venipuncture 12:49:35 ERP ENGINEER
[2018-09-07] MEDS ORDERED: MECLIZINE HCL 12.5 MG TAB ONE (14:16)
[2018-09-07 14:31] LABS: Absolute Monocytes 0.4 K/uL (0.1-1.3); Absolute Neutrophil 7.2 K/uL (1.8-8.0); Basophils % 0.9 % (0-1.3); Eosinophils % 1.8 % (0-4.4); Hematocrit 37.1 % (36.0-45.0); Lymphocytes % 19.9 % (15.3-44.8); MPV 8.1 fL (7.6-11.3); Monocytes % 4.2 % (3.3-12.3); RBC Red Blood Cell Count 3.85 M/uL (3.86-4.86)
[2018-09-07 14:32] LABS: Protime INR 1.06
--- NOTE | 2018-09-07 14:34 | RAD REPORT ---
EXAM DESCRIPTION: Sandra Single View09/07/2018 2:26 pm CLINICAL HISTORY: Chest pain COMPARISON: August 28, 2018 FINDINGS: The lungs appear clear of acute infiltrate. The heart is normal size IMPRESSION: No acute abnormalities displayed
[2018-09-07 16:19] LABS: Urine Blood NEGATIVE (NEG); Urine Glucose NEGATIVE (NEG); Urine Protein NEGATIVE (NEG)
[2018-09-07 16:53] LABS: ALT/SGPT 13 U/L (12-78); AST/SGOT 11 U/L (15-37); Albumin 3.7 g/dL (3.4-5.0); Alkaline Phosphatase 95 U/L (45-117); BUN Blood Urea Nitrogen 13 mg/dL (7-18); Bicarbonate 26 mmol/L (21-32); Bilirubin Direct < 0.1 mg/dL (0-0.2); Bilirubin Total 0.2 mg/dL (0.2-1.0); Glucose Level 160 mg/dL (74-106); Magnesium 1.9 mg/dL (1.8-2.4); NT PRO-BNP 27 pg/mL (<125); Protein, Total 7.8 g/dL (6.4-8.2); Sodium Level 137 mmol/L (136-145); Troponin (Emerg Dept Use Only) < 0.02 ng/mL (0.0-0.045)
--- NOTE | 2018-09-07 17:03 | EDPHYS ---
Physician Documentation [facility] Name: Annalee Sanabria Age: 58 yrs Sex: Female : 1960 Arrival Date: 09/07/2018 Time: 13:37 Bed 26 Private MD: ED Physician Alonso Lucia HPI: 09/07 14:51 This 58 yrs old Female presents to ER via EMS with complaints of weakness. kb 14:51 The patient presents with dizziness, feeling faint, generalized weakness, kb lightheadedness. Onset: The symptoms/episode began/occurred just prior to arrival. Context: occurred rehab, occurred while the patient was sitting in group class. just prior to the episode the patient experienced no apparent symptoms. Modifying factors: The symptoms are alleviated by nothing, the symptoms are aggravated by changing position. Associated signs and symptoms: Pertinent positives: headache, nausea, vomiting. Severity of symptoms: At their worst the symptoms were moderate in the emergency department the symptoms are unchanged. Patient's baseline: Neuro: alert and fully oriented, Motor: no deficits, Ambulation: walks without assistance, Speech: normal. The patient has not experienced similar symptoms in the past. The patient has not recently seen a physician. Pt reports she was sitting in a [place] in group class at rehab and someone started screaming like a crazy person. States they were screaming for about 5 minutes and all of the sudden she felt hot, got chills, nausea, vomiting, dizziness, lightheaded, feeling like she is going to pass out. . Historical: - Allergies: 13:42 PENICILLINS; ca1 - Home Meds: 13:42 duloxetine oral oral [Active]; Lisinopril Oral [Active]; Metformin Oral [Active]; ca1 Risperdal Oral [Active]; - PMHx: 13:42 Hypertension; ca1 - PSHx: 13:42 ovarian cyst; knee - left; ; ca1 - Immunization history:: Pneumococcal vaccine is up to date, Flu vaccine is up to date. - Social history:: Smoking status: Patient uses tobacco products, 3 cigarettes a day. - Ebola Screening: : No symptoms or risks identified at this time. ROS: 14:49 Constitutional: Negative for fever, chills, and weight loss, ENT: Negative for injury, kb pain, and discharge, Neck: Negative for injury, pain, and swelling, Cardiovascular: Negative for chest pain, palpitations, and edema, Respiratory: Negative for shortness of breath, cough, wheezing, and pleuritic chest pain, Back: Negative for injury and pain, MS/Extremity: Negative for injury and deformity, Skin: Negative for injury, rash, and discoloration. 14:49 Neuro: Positive for dizziness, headache, weakness. 14:50 Abdomen/GI: Positive for nausea and vomiting, Negative for abdominal pain, diarrhea, kb constipation, abdominal cramps, abdominal distension, anorexia. Exam: 14:50 Constitutional: This is a well developed, well nourished patient who is awake, alert, kb and in no acute distress. Head/Face: Normocephalic, atraumatic. ENT: Nares patent. No nasal discharge, no septal abnormalities noted. Tympanic membranes are normal and external auditory canals are clear. Oropharynx with no redness, swelling, or masses, exudates, or evidence of obstruction, uvula midline. Mucous membranes moist. Neck: Trachea midline, no thyromegaly or masses palpated, and no cervical lymphadenopathy. Supple, full range of motion without nuchal rigidity, or vertebral point tenderness. No Meningismus. Chest/axilla: Normal chest wall appearance and motion. Nontender with no deformity. No lesions are appreciated. Cardiovascular: Regular rate and rhythm with a normal S1 and S2. No gallops, murmurs, or rubs. Normal PMI, no JVD. No pulse deficits. Respiratory: Lungs have equal breath sounds bilaterally, clear to auscultation and percussion. No rales, rhonchi or wheezes noted. No increased work of breathing, no retractions or nasal flaring. Abdomen/GI: Soft, non-tender, with normal bowel sounds. No distension or tympany. No guarding or rebound. No evidence of tenderness throughout. Skin: Warm, dry with normal turgor. Normal color with no rashes, no lesions, and no evidence of cellulitis. MS/ Extremity: Pulses equal, no cyanosis. Neurovascular intact. Full, normal range of motion. Neuro: Awake and alert, GCS 15, oriented to person, place, time, and situation. Cranial nerves II-XII grossly intact. Motor strength 5/5 in all extremities. Sensory grossly intact. Cerebellar exam normal. Normal gait. Vital Signs: 13:42 BP 135 / 77; Pulse 76; Resp 18; Temp 99.2; Pulse Ox 99% on R/A; Weight 67.13 kg; Height ca1 5 ft. 0 in. (152.40 cm); Pain 6/10; 14:44 BP 118 / 67; Pulse 77; Resp 23; Pulse Ox 99% on R/A; ca1 15:09 BP 101 / 62 Supine; lt1 15:09 BP 116 / 72 Sitting; lt1 15:09 BP 132 / 76 Standing; lt1 15:09 BP 132 / 76; Pulse 91; Resp 17; Pulse Ox 99% ; lt1 15:50 BP 122 / 76; Pulse 87; Resp 19; Pulse Ox 99% on R/A; ca1 16:45 BP 100 / 62; Pulse 74; Resp 19; Pulse Ox 98% on R/A; ca1 13:42 Body Mass Index 28.90 (67.13 kg, 152.40 cm) ca1 MDM: 13:43 Patient medically screened. kb 14:49 Data reviewed: vital signs, nurses notes. Data interpreted: Pulse oximetry: on room air kb is 99 %. Interpretation: normal. 17:01 Counseling: I had a detailed discussion with the patient and/or guardian regarding: the kb historical points, exam findings, and any diagnostic results supporting the discharge/admit diagnosis, lab results, radiology results, the need for outpatient follow up, a family practitioner, to return to the emergency department if symptoms worsen or persist or if there are any questions or concerns that arise at home. ED course: Pt reports she is feeling better. Has no complaints at this time. . 09/07 13:55 Order name: Basic Metabolic Panel; Complete Time: 16:58 kb 09/07 13:55 Order name: CBC with Diff; Complete Time: 14:49 kb 09/07 13:55 Order name: LFT's; Complete Time: 16:58 kb 09/07 13:55 Order name: Magnesium; Complete Time: 16:58 kb 09/07 13:55 Order name: NT PRO-BNP; Complete Time: 16:58 kb 09/07 13:55 Order name: PT-INR; Complete Time: 14:41 kb 09/07 13:55 Order name: Troponin (emerg Dept Use Only); Complete Time: 16:58 kb 09/07 13:55 Order name: XRAY Chest (1 view); Complete Time: 14:37 kb 09/07 13:55 Order name: EKG; Complete Time: 13:56 kb 09/07 13:55 Order name: Cardiac monitoring; Complete Time: 14:17 kb 09/07 13:55 Order name: EKG - Nurse/Tech; Complete Time: 14:17 kb 09/07 14:03 Order name: Glucose, Ancillary Testing; Complete Time: 14:07 EDMS 09/07 15:40 Order name: Urine Dipstick--Ancillary (enter results); Complete Time: 16:24 eb 09/07 13:55 Order name: IV Saline Lock; Complete Time: 14:17 kb 09/07 13:55 Order name: Labs collected and sent; Complete Time: 14:17 kb 09/07 13:55 Order name: O2 Per Protocol; Complete Time: 14:16 kb 09/07 13:55 Order name: O2 Sat Monitoring; Complete Time: 14:16 kb 09/07 13:55 Order name: Orthostatics; Complete Time: 15:11 kb 09/07 13:56 Order name: Blood Glucose Level; Complete Time: 14:08 kb EC:50 Rate is 72 beats/min. Rhythm is regular. QRS [place] is Normal. MN interval is normal at kb 138 msec. QRS interval is normal at 86 msec. QT interval is normal at 396 msec. Clinical impression: Normal ECG. Reviewed by me. Administered Medications: 14:08 Drug: Meclizine 25 mg Route: PO; ss 17:11 Follow up: Response: No adverse reaction ca1 Point of Care Testing: Blood Glucose: 14:00 Blood Glucose: 165 mg/dL; lt1 Ranges: Critical Glucose Levels:Adult <50 mg/dl or >400 mg/dl <40 mg/dl or >180 mg/dl Disposition: 17:46 Co-signature as Attending Physician, Alonso Lucia MD I agree with the assessment and kdr plan of care. Disposition: 09/07/18 17:02 Discharged to Home. Impression: Dizziness and giddiness. - Condition is Stable. - Discharge Instructions: Dizziness, Cive-ni-Wekt. - Medication Reconciliation Form, Thank You Letter, Antibiotic Education, Prescription Opioid Use form. - Follow up: Emergency Department; When: As needed; Reason: Worsening of condition. Follow up: Private Physician; When: 2 - 3 days; Reason: Recheck today's complaints, Continuance of care, Re-evaluation by your physician. Signatures: Dispatcher [employer] EDMS Caridad Malloy, MEDICAL DIRECTOR/HEAD TEAM PHYSICIAN-C MEDICAL DIRECTOR/HEAD TEAM PHYSICIAN-Alonso Morelos MD MD [facility] Beatrice Gonsalves, VICENTA RN ss AcSuellen gordillo RN RN ca1 Corrections: (The following items were deleted from the chart) 14:50 14:49 Constitutional: Negative for fever, chills, and weight loss, ENT: Negative for kb injury, pain, and discharge, Neck: Negative for injury, pain, and swelling, Cardiovascular: Negative for chest pain, palpitations, and edema, Respiratory: Negative for shortness of breath, cough, wheezing, and pleuritic chest pain, Abdomen/GI: Negative for abdominal pain, nausea, vomiting, diarrhea, and constipation, Back: Negative for injury and pain, MS/Extremity: Negative for injury and deformity, Skin: Negative for injury, rash, and discoloration, kb 17:27 17:02 09/07/2018 17:02 Discharged to Home. Impression: Dizziness and giddiness. ca1 Condition is Stable. Forms are Medication Reconciliation Form, Thank You Letter, Antibiotic Education, Prescription Opioid Use. Follow up: Emergency Department; When: As needed; Reason: Worsening of condition. Follow up: Private Physician; When: 2 - 3 days; Reason: Recheck today's complaints, Continuance of care, Re-evaluation by your physician. kb
--- NOTE | 2018-09-07 17:03 | ER ---
Nurse's Notes [facility] Name: Annalee Sanabria Age: 58 yrs Sex: Female : 1960 Arrival Date: 09/07/2018 Time: 13:37 Bed 26 Private MD: Diagnosis: Dizziness and giddiness Presentation: 09/07 13:37 Presenting complaint: EMS states: pt had an anxiety attack with symptoms of N/V, ca1 lightheaded and dizziness. Pt sober for 16 days. Transition of care: patient was received from another setting of care (rehabilitation facility). Onset of symptoms was September 07, 2018 at 13:00. Risk Assessment: Do you want to hurt yourself or someone else? Patient reports no desire to harm self or others. Initial Sepsis Screen: Does the patient meet any 2 criteria? No. Patient's initial sepsis screen is negative. Does the patient have a suspected source of infection? No. Patient's initial sepsis screen is negative. Care prior to arrival: Glucose check: 99. 13:37 Method Of Arrival: EMS: [facility] ca1 13:37 Acuity: ALIYA 3 ca1 Triage Assessment: 13:42 General: Appears in no apparent distress. uncomfortable, Behavior is calm, cooperative, ca1 appropriate for age. General: Reports. Pain: Complains of pain in anterior aspect of left upper chest Pain radiates to left arm Pain currently is 6 out of 10 on a pain scale. Quality of pain is described as sharp, Pain began 30 min ago. Is continuous. EENT: Cardiovascular: Heart tones S1 S2 present Capillary refill < 3 seconds Patient's skin is warm and dry. Rhythm is sinus rhythm. Historical: - Allergies: 13:42 PENICILLINS; ca1 - Home Meds: 13:42 duloxetine oral oral [Active]; Lisinopril Oral [Active]; Metformin Oral [Active]; ca1 Risperdal Oral [Active]; - PMHx: 13:42 Hypertension; ca1 - PSHx: 13:42 ovarian cyst; knee - left; ; ca1 - Immunization history:: Pneumococcal vaccine is up to date, Flu vaccine is up to date. - Social history:: Smoking status: Patient uses tobacco products, 3 cigarettes a day. - Ebola Screening: : No symptoms or risks identified at this time. Screenin:45 Abuse screen: Denies threats or abuse. Denies injuries from another. Nutritional ca1 screening: No deficits noted. Tuberculosis screening: No symptoms or risk factors identified. Fall Risk None identified. Assessment: 13:45 General: Appears in no apparent distress. comfortable, Behavior is calm, cooperative, ca1 appropriate for age. Pain: Complains of pain in chest and anterior aspect of left upper chest Pain radiates to left arm Pain currently is 6 out of 10 on a pain scale. Quality of pain is described as sharp, Pain began 30 min ago. Is continuous. Neuro: Level of Consciousness is awake, alert, obeys commands, Oriented to person, place, time, situation, Reports dizziness, lightheaded. Cardiovascular: Heart tones S1 S2 present Capillary refill < 3 seconds Patient's skin is warm and dry. Respiratory: Airway is patent Respiratory effort is even, unlabored, Respiratory pattern is regular, symmetrical, Breath sounds are clear bilaterally. GI: Abdomen is flat, non-distended, Bowel sounds present X 4 quads. Abd is soft and non tender X 4 quads. : No deficits noted. No signs and/or symptoms were reported regarding the genitourinary system. EENT: No deficits noted. No signs and/or symptoms were reported regarding the EENT system. Derm: Skin is intact, is healthy with good turgor, Skin is pink, warm \T\ dry. Musculoskeletal: Circulation, motion, and sensation intact. Capillary refill < 3 seconds. 14:10 Reassessment: Refused orthostatics at this time. Says she feels really dizzy. Informed ca1 provider. Will do in a while when dizziness alleviates. 14:44 Reassessment: Patient appears in no apparent distress at this time. Patient and/or ca1 family updated on plan of care and expected duration. Pain level reassessed. Patient is alert, oriented x 3, equal unlabored respirations, skin warm/dry/pink. 15:50 Reassessment: Patient appears in no apparent distress at this time. Patient and/or ca1 family updated on plan of care and expected duration. Pain level reassessed. Patient is alert, oriented x 3, equal unlabored respirations, skin warm/dry/pink. 16:45 Reassessment: Patient appears in no apparent distress at this time. Patient and/or ca1 family updated on plan of care and expected duration. Pain level reassessed. Patient states feeling better. 17:19 Reassessment: Called [facility] [phone] to inform discharge and for pt berry picker. ca1 Will be here in 15-20 minutes. 17:20 Reassessment: Pt ambulatory, oriented x 4, not in respiratory distress. Will wait at ca1 the lobby for berry picker from Rehab facility. Vital Signs: 13:42 BP 135 / 77; Pulse 76; Resp 18; Temp 99.2; Pulse Ox 99% on R/A; Weight 67.13 kg; Height ca1 5 ft. 0 in. (152.40 cm); Pain 6/10; 14:44 BP 118 / 67; Pulse 77; Resp 23; Pulse Ox 99% on R/A; ca1 15:09 BP 101 / 62 Supine; lt1 15:09 BP 116 / 72 Sitting; lt1 15:09 BP 132 / 76 Standing; lt1 15:09 BP 132 / 76; Pulse 91; Resp 17; Pulse Ox 99% ; lt1 15:50 BP 122 / 76; Pulse 87; Resp 19; Pulse Ox 99% on R/A; ca1 16:45 BP 100 / 62; Pulse 74; Resp 19; Pulse Ox 98% on R/A; ca1 13:42 Body Mass Index 28.90 (67.13 kg, 152.40 cm) ca1 ED Course: 13:37 Patient arrived in ED. ca1 13:39 Triage completed. ca1 13:42 Arm band placed on right wrist. EKG completed in triage. Results shown to MD. ca1 13:43 Caridad Malloy FNP-C is [facility]. kb 13:43 Alonso Lucia MD is Attending Physician. kb 13:45 Patient has correct armband on for positive identification. Placed in gown. Bed in low ca1 position. Call light in reach. Side rails up X 1. media monitor on. Pulse ox on. NIBP on. Warm blanket given. 13:46 EKG done, by sound technician. reviewed by Caridad BEARDEN. sm3 13:48 No provider procedures requiring assistance completed. ca1 13:49 Suellen Sheikh, VICENTA is Primary Nurse. ca1 14:16 Initial lab(s) drawn, by dc, sent to lab. Inserted saline lock: 22 gauge in left lt1 antecubital area, using aseptic technique. 14:25 X-ray completed. Portable x-ray completed in exam room. Patient tolerated procedure sw well. 14:27 XRAY Chest (1 view) In Process Unspecified. EDMS 17:24 IV discontinued, intact, bleeding controlled, No redness/swelling at site. Pressure ca1 dressing applied. Administered Medications: 14:08 Drug: Meclizine 25 mg Route: PO; ss 17:11 Follow up: Response: No adverse reaction ca1 Point of Care Testing: Blood Glucose: 14:00 Blood Glucose: 165 mg/dL; lt1 Ranges: Outcome: 17:02 Discharge ordered by MD. crawford 17:24 Discharged to Rehab Facility ca1 17:24 Condition: stable 17:24 Discharge instructions given to patient, Instructed on discharge instructions, follow up and referral plans. Demonstrated understanding of instructions, follow-up care. 17:27 Patient left the ED. ca1 Signatures: Dispatcher [employer] EDMS Caridad Malloy, Beatrice Fall RN RN ss Mónica Davidson Shakira sm3 Suellen Sheikh RN RN ca1 Rosa Davis lt1 Corrections: (The following items were deleted from the chart) 13:50 13:37 Presenting complaint: EMS states: pt had an anxiety attack with symptoms of N/V, ca1 lightheaded and dizziness ca1 17:24 16:45 Reassessment: Patient appears in no apparent distress at this time. Patient ca1 and/or family updated on plan of care and expected duration. Pain level reassessed. ca1
--- NOTE | 2018-09-08 06:17 | EKG ---
Test Date: 2018-09-07 Test Time: 13:41:03 Negative Developer: DAMIÁN MEASUREMENT RESULTS: Intervals: Rate: 72 HI: 138 QRSD: 86 QT: 396 QTc: 433 [place]: P: 43 HI: 138 QRS: 62 T: 57 INTERPRETIVE STATEMENTS: Normal sinus rhythm Normal ECG Compared to ECG 08/28/2018 10:20:58 No significant changes Electronically Signed On 09-08-18 06:16:15 CDT by Adam Rivas
== END 2018-09-07 17:27 | disposition home or self-care (01) ==
LOC: ER 13:27
DX: R42 Dizziness and giddiness (principal); R53.1 Weakness; I10 Essential (primary) hypertension; Z88.0 Allergy status to penicillin
CPT/HCPCS: 36415; 71045; 80048; 80076; 81003; 82962; 83735; 83880; 84484; 85025; 85610; 93005; 99285

== ENCOUNTER 2018-09-15 19:26 | Emergency (ER) | payer OTHER ==
--- OUTSIDE RECORDS SUMMARY | 2018-09-15 19:29 | XMS REPORT ---
:1960 [facility] Address [address] [place] [address] [place] [id number] Care Team Providers Name Role Phone TABATHA RODNEY Primary Care Provider Unavailable Problems This patient has no known problems. Allergies, Adverse Reactions, Alerts This patient has no known allergies or adverse reactions. Medications This patient has no known medications. Encounters Start End Encounter Admission Attending Care Care Encounter Date/Time Date/Time Type Type Clinicians Facility Department ID 2016-10-18 Inpatient [facility] MED [id number] 19:12:00 2017-05-01 2017-05-01 Emergency [facility] [id number] 02:20:07 02:20:07 2017-05-01 2017-05-01 Emergency [facility] MED [id number] 01:46:59 01:46:59
--- OUTSIDE RECORDS SUMMARY | 2018-09-15 19:31 | XMS REPORT ---
:1960 Author Organization [facility] Address Unavailable , Allergies, Adverse Reactions, Alerts Allergy Name Reaction Description Start Date Severity Status Provider PENICILLIN rash Moderate Active Helen Irvin VENEER LATHE OPERATOR Conditions or Problems Problem Name Problem Onset [...] Vaginitis and vaginitis 09/07 09/07 Rodriguez vulvovaginitis, VENEER LATHE OPERATOR unspecified UTI 599.0 Active Carolynn Urinary tract 09/07 09/07 Rodriguez infection, site VENEER LATHE OPERATOR not specified High risk for V15.9 Active [...] USE 2015/1 Active Shelley Young DISORDER, 0 FITTER UP SEVERE BIPOLAR AND Active Shelley Young Bipolar RELATED FITTER UP disorder, DISORDER, unspecified UNSPECIFIED Abdominal 789.04 Active Vargas Abdominal pain, pain, left 10/29 10/31 Naveed STALLWORTH left lower lower quadrant quadrant Health V70.0 Active Besty Routine general screening 10/29 10/29 [facility] medical RN examination at a health care facility HEALTH V70.0 Active Betsy Routine general SCREENING 06/17 06/17 [facility] medical RN examination at a health care facility CHEST PAIN 786.50 Active Marco Antonio Unspecified Klarberg chest pain VENEER LATHE OPERATOR DIZZINESS 780.4 Active Carolynn Dizziness and 10/26 10/26 Rodriguez giddiness VENEER LATHE OPERATOR HEADACHE 784.0 Active Carolynn Headache 10/26 10/26 Rodriguez VENEER LATHE OPERATOR HEMATOCHEZIA 578.1 Active Carolynn Blood in stool 10/26 10/26 Rodriguez VENEER LATHE OPERATOR PREVENTIVE V70.0 Active Carolynn Routine general HEALTH CARE 10/26 10/26 Rodriguez medical VENEER LATHE OPERATOR examination at a health care facility PERIPHERAL 356.9 Active Irene Unspecified NEUROPATHY 10/10 10/10 Matthew STALLWORTH hereditary and idiopathic peripheral neuropathy ALCOHOL 303.90 Active Lashaun Other and DEPENDENCE 08/20 08/20 Cecelia STALLWORTH unspecified alcohol dependence, unspecified drinking behavior BIPOLAR 296.80 Active Helen Bipolar DISORDER 08/10 08/10 Irvin disorder, UNSPECIFIED VENEER LATHE OPERATOR unspecified Diabetes 250.00 Active Vargas Diabetes mellitus, type 08/10 07/08 Naveed STALLWORTH mellitus without II mention of complication, type II or unspecified type, not stated as uncontrolled DRUG ABUSE, HX V15.89 Active Helen Other specified OF 08/10 08/10 Irvin personal history VENEER LATHE OPERATOR presenting hazards to health HYPERLIPIDEMIA 272.4 Active Helen Other and 08/10 08/10 Irvin unspecified VENEER LATHE OPERATOR hyperlipidemia HYPERTENSION 401.9 Active Helen Unspecified 08/10 08/10 Irvin essential VENEER LATHE OPERATOR hypertension OBESITY 278.00 Active Helen Obesity, 08/10 08/10 Irvin unspecified VENEER LATHE OPERATOR PASSIVE SMOKE E869.4 Active Helen Accidental EXPOSURE 08/10 Irvin poisoning from VENEER LATHE OPERATOR second-hand tobacco smoke TOBACCO USER 305.1 Active Lashaun Tobacco use 03/06 Cecelia STALLWORTH disorder COCAINE ABUSE 305.60 Inactive Carolynn Cocaine abuse, 08/20 10/26 Rodriguez unspecified use VENEER LATHE OPERATOR COCAINE ABUSE ICD-305.60 Inactive Carolynn Rodriguez VENEER LATHE OPERATOR DIABETES 250.02 Inactive Helen Diabetes mellitus MELLITUS, TYPE Irvin VENEER LATHE OPERATOR without mention II, UNCONTROLLED of complication, type II or unspecified type, uncontrolled WELL WOMAN V70.0 Inactive Helen Routine general Irvin VENEER LATHE OPERATOR medical examination at a health care facility WELL WOMAN ICD-V70.0 Inactive Helen Irvin VENEER LATHE OPERATOR UTI ICD-599.0 Inactive Carolynn Rodriguez VENEER LATHE OPERATOR UTI 599.0 09/17/2013 Resolved Carolynn Dunnpard VENEER LATHE OPERATOR Urinary tract infection, site not specified Medication List Medication Instructions Start Stop Generic NDC Status Provider Patient Date Date Name Instruction TYLENOL 1 by ACETAMINOPHEN-CODEINE 23556893931 Active Tee Active WITH mouth Jacinto CODEINE every 4 DDS #3 300-30 hours as MG ORAL needed TABLET TYLENOL 1 by ACETAMINOPHEN-CODEINE 57732023950 Active Tee Active WITH mouth Jacinto CODEINE every 4 DDS #3 300-30 hours as MG ORAL needed TABLET NEBULIZER use as NEBULIZERS 90313490037 Active Ketty Active directed Kamala - include - face mask and accessor ies required for use. ICD 10 -- ALBUTEROL 1 via ALBUTEROL SULFATE 57648668563 Active Vargas Active SULFATE Hand Lucio (2.5 held neb MD MG/3ML) every 4 0.083% - 6 INHALATIO hours as N needed NEBULIZAT ION SOLUTION AMITRIPTY 1 by AMITRIPTYLINE HCL 80866480211 Active Vargas Active LINE HCL mouth Lucio 25 MG nightly MD ORAL at TABLET bedtime CIPRO 500 1 by CIPROFLOXACIN HCL 58002666095 Active Carolynn Active MG ORAL mouth Rodriguez TABLET twice a VENEER LATHE OPERATOR day FLAGYL 1 tab by METRONIDAZOLE 70716472457 Active Carolynn Active 500 MG mouth Rodriguez ORAL twice a VENEER LATHE OPERATOR TABLET day for 7 days DULOXETIN one By DULOXETINE HCL 95537045253 Active Zishan Active E HCL 30 Mouth Samiudd MG ORAL Every in MD CAPSULE Day DELAYED RELEASE PARTICLES GABAPENTI 1 by GABAPENTIN 51810059627 Active Yoana Active N 100 MG mouth e Cecelia ORAL Twice a MD CAPSULE Day ADVAIR 1 puff FLUTICASONE-SALMETEROL 54642388171 Active Vargas Active DISKUS BID Lucio 250-50 MD MCG/DOSE INHALATIO N AEROSOL POWDER BREATH ACTIVATED ENALAPRIL 1 by ENALAPRIL MALEATE 51080010564 Active Vargas Active MALEATE mouth Lucio 10 MG every MD ORAL day TABLET RISPERIDO one By RISPERIDONE 16741215059 Active Yoana Active NE 1 MG Mouth e Cecelia ORAL Twice a MD TABLET Day MECLIZINE 1 by MECLIZINE HCL 67058706644 Active Carolynn Active HCL 25 MG mouth 3 Rodriguez ORAL times a VENEER LATHE OPERATOR TABLET day as needed CLINDAMYCIN one CLINDAMYCIN 821151 CLINDAMYCIN Inactive HCL 300 MG tablet HCL 300 MG HCL ORAL CAPSULE by mouth ORAL CAPSULE every 8 hours LATUDA 40 MG one By LATUDA 40 MG LURASIDONE Inactive ORAL TABLET Mouth ORAL TABLET HCL Every Day AMITRIPTYLINE 1 by AMITRIPTYLINE 323376 AMITRIPTYLINE Inactive HCL 25 MG mouth HCL 25 MG HCL ORAL TABLET nightly ORAL TABLET at bedtime OLANZAPINE 5 one By OLANZAPINE 5 510382 OLANZAPINE Inactive MG ORAL Mouth MG ORAL TABLET take at TABLET bedtime for one week then increase to 10mg take at bedtime if tolerate d ENALAPRIL Takes 1 ENALAPRIL 051577 ENALAPRIL Inactive MALEATE 5 MG tab MALEATE 5 MG MALEATE ORAL TABLET daily ORAL TABLET CLINDAMYCIN one CLINDAMYCIN 81762601180 No Tee Active HCL 300 MG tablet HCL Longer Jacinto ORAL CAPSULE by Active DDS mouth every 8 hours LATUDA 40 MG one By LURASIDONE 38489296162 No Yoana Active ORAL TABLET Mouth HCL Longer e Cecelia Every Active MD Day AMITRIPTYLIN 1 by AMITRIPTYLIN 01363178715 No Yoana Active E HCL 25 MG mouth E HCL Longer e Cecelia ORAL TABLET nightly Active MD at bedtime OLANZAPINE 5 one By OLANZAPINE 18555960341 No Yoana Active MG ORAL Mouth Longer e Cecelia TABLET take at Active MD bedtime for one week then increas e to 10mg take at bedtime if tolerat ed ENALAPRIL Takes 1 ENALAPRIL 93358728897 No Marco Antonio Active MALEATE 5 MG tab MALEATE Longer Klarber ORAL TABLET daily Active g VENEER LATHE OPERATOR Advance Directives Directive Description Start Date DISCUSSED - NO DECISION MADE Immunizations Vaccine Administration Date Value Standard Description influenza immunization given influenza virus vaccine, (Flu Vax) has been unspecified formulation administered pneumococcal given elsewhere pneumococcal immunization polysaccharide vaccine, administered 23 valent influenza immunization given influenza virus vaccine, (Flu Vax) has been unspecified formulation administered PEDIATRIC PNEUMOCOCCAL given pneumococcal conjugate VACCINE ([id number]) #1 vaccine, 13 valent Vital Signs Date [...] Prolactin, RPR, Rfx Qn RPR/Confirm TP, Panel [id number], HCV Ant ... - Serology hepatitis C [...] Prolactin, RPR, Rfx Qn RPR/Confirm TP, Panel [id number], HCV Ant ... - Chemistry prolactin, serum [...] MG/G CREAT ug/mg 0.0- 30.0 Lab Report: [id number] 7+Alc-Unbund - Toxicology amphetamine screen, urine Negative Tslcpq=8665 Lab Report: CBC With Differential/Platelet, Comp. Metabolic [...] leukocytes 7 % Not Estab. Lab Report: [id number] 7+Alc-Unbund - Toxicology phencyclidine screen, urine Negative ng/mL Cutoff=25 opiate screen, urine Negative Tadnmc=900 Lab Report: Pap IG, rfx HPV ASCU, HPV, high-risk - Lab Human Papillomavirus test result HPVTested Lab Report: Prolactin, RPR, Rfx Qn RPR/Confirm TP, Panel [id number], HCV Ant ... - Urinalysis urine culture [...] urine microscopy Many None seen/Few Lab Report: [id number] 7+Alc-Unbund - Toxicology barbiturates screen, urine Negative Cgnljl=789 Lab Report: CBC With Differential/Platelet, Comp. Metabolic [...] MD, patient Kathy Romeochristie STALLWORTH, Jennifer Pradhan VENEER LATHE OPERATOR, Marco Antonio Mckeon VENEER LATHE OPERATOR, Len Marie CARTOON ANIMATOR-C, Anisa Patino MA, Jaden Mahmood MA, Suzan [...] Prolactin, RPR, Rfx Qn RPR/Confirm TP, Panel [id number], HCV Ant ... - Serology rapid plasma reagin antibody, serum Non Reactive Non Reactive Lab Report: Vaginitis/Vaginosis, DNA Probe, Chlamydia/GC Amplification - Lab chlamydia DNA probe Negative Negative Lab Report: Vaginitis/Vaginosis, DNA Probe, Chlamydia/GC Amplification - Microbiology Neisseria gonorrhoeae DNA probe Negative Negative Lab Report: CBC With Differential/Platelet, Comp. Metabolic Panel (14), ... - Chemistry sodium, serum 141 mmol/L 279-640 9409/10/06 hemoglobin A1C, blood, as % of total [...] Urinalysis specific gravity, urine 1.015 Lab Report: [id number] 7+Alc-Unbund - Toxicology benzodiazepine screen, urine Negative Oafwiz=202 cannabinoid screen, urine Negative ng/mL Cutoff=50 Lab [...] glucose, random 102 mg/dL 65-99 Lab Report: [id number] 7+Alc-Unbund - Urinalysis Ethanol screen urine Negative Cutoff=0.020 Lab Report: CBC With Differential/Platelet, Comp. Metabolic Panel (14), ... - Chemistry aspartate aminotransferase (SGOT), serum 86 U/L 0-40 Lab Report: UA/M w/rflx Culture, Routine, Microscopic Examination, UA/M ... - Urinalysis urine color OR Yellow Encounters Date Encounter Provider Code Facility Est Patient Detailed Lashaun Rai MD CPT-85523 [facility] 10:51:51 CDT - 84648 Est Patient Detailed Lashaun Rai MD CPT-15502 [facility] 11:31:47 CDT - 65539 Est Patient Exp Lashaun Rai MD CPT-26338 [facility] 11:06:08 CDT Problem - 39425 Est Patient Exp Lashaun Rai MD CPT-32680 [facility] 11:05:34 CDT Problem - 29711 Est Patient Exp Lashaun Ria MD CPT-44338 [facility] 10:44:34 CDT Problem - 80099 Est Patient Exp Vargas Lucio MD CPT-47293 [facility] 19:55:32 CDT Problem - 01642 Est Patient Problem Marilou Gupta MD CPT-72214 [facility] 14:24:37 CDT Focus - 66759 CANVAS CUTTER MACHINE Est Patient Exp Marilou Gupta MD CPT-43238 [facility] 13:16:34 CDT Problem - 88887 CANVAS CUTTER MACHINE Ofc Vst, Est Level Carolynn Rodriguez VENEER LATHE OPERATOR CPT-73777 [facility] 11:53:40 CDT III Est Patient Detailed Vargas Lucio MD CPT-56584 [facility] 10:33:53 NURSE CARE MANAGER - 26913 Est Patient Exp Vargas Lucio MD CPT-32856 [facility] 10:45:43 NURSE CARE MANAGER Problem - 77561 Est Patient Exp Lashaun Rai MD CPT-07246 [facility] 11:21:49 CDT Problem - 45416 Ofc Vst, Est Level Vargas Lucio MD CPT-53487 [facility] 14:13:09 CDT IV Est Patient Exp Lashaun Rai MD CPT-29722 [facility] 11:05:19 CDT Problem - 12667 Est Patient Nurse - Betsy Downing RN CPT-79139 [facility] 12:15:19 CDT Only Visit - 38220 Est Patient Exp Lashaun Rai MD CPT-16977 [facility] 11:35:22 NURSE CARE MANAGER Problem - 85781 Est Patient Exp Lashaun Rai MD CPT-48513 [facility] 13:15:03 NURSE CARE MANAGER Problem - 05237 Est Patient Exp Lashaun Rai MD CPT-15595 [facility] 11:00:22 NURSE CARE MANAGER Problem - 04503 Est Patient Nurse - Betsy Downing RN CPT-16778 [facility] 13:59:58 NURSE CARE MANAGER Only Visit - 65509 Est Patient Problem Marco Antonio Mckeon VENEER LATHE OPERATOR CPT-70089 [facility] 12:41:27 NURSE CARE MANAGER Focus - 37837 Est Patient Exp Marco Antonio Mckeon VENEER LATHE OPERATOR CPT-98123 [facility] 09:45:08 CDT Problem - 80951 Est Patient Exp Lashaun Rai MD CPT-41576 [facility] 08:48:48 CDT Problem - 50869 Est Patient Exp Lashaun Rai MD CPT-65342 [facility] 15:58:07 CDT Problem - 69704 Est Patient Exp Lashaun Rai MD CPT-14648 [facility] 09:30:29 CDT Problem - 45586 Est Patient Exp Lashaun Rai MD CPT-81660 [facility] 09:38:20 CDT Problem - 10509 Health Est Patient Exp Lashaun Rai MD CPT-42936 [facility] 09:17:39 CDT Problem - 17124 Ofc Vst, Est Level Carolynn Rodriguez VENEER LATHE OPERATOR CPT-35843 [facility] 11:39:34 CDT IV Est Patient Problem Lashaun Rai MD CPT-66157 [facility] 09:31:32 CDT Focus - 96234 Ofc Vst, Est Level Irene Castro MD CPT-92341 [facility] 10:06:43 CDT III Est Patient Exp Marco Antonio Mckeon VENEER LATHE OPERATOR CPT-95360 [facility] 17:03:58 CDT Problem - 89449 Ofc Vst, New Level Helen Irvin VENEER LATHE OPERATOR CPT-89290 [facility] CANVAS CUTTER MACHINE 12:49:35 NURSE CARE MANAGER III Procedures Code Procedure Name Date Entry Date Standard Description CPT-86025 Urine Drug Screen - In [place] 10:51:54 CDT CPT-75855 Psychotherapy 45 (38-52*) min - 61929 (with patient 09:27:28 CDT and/or family member) CPT-88453 Psychotherapy 30 (16-37*) min - 67886 (with patient 09:47:37 CDT and/or family member) CPT-58583 Diagnostic evaluation (no medical) - 10934 08:06:17 CDT CPT-93552 Influenza - Adult - Injection 10:45:53 NURSE CARE MANAGER CPT-94698 Admin of Vaccine - Injection - 1 10:45:53 NURSE CARE MANAGER CPT-81297 Group Psychotherapy - 63082 22:11:40 CDT CPT-77716 Group Psychotherapy - 90071 12:01:03 CDT CPT-46091 Prevnar (PCV13) IM 08:39:36 CDT CPT-98921 Influenza - Adult - Injection 08:39:36 CDT CPT-37747 EKG - Tracing Only 09:45:08 CDT CPT-67390 Urine Drug Screen - In House 09:31:32 CDT CPT-58203 Glucose Stick 10:06:43 CDT CPT-54788 Urinalysis - Dip only - In [place] 10:06:43 CDT CPT-54712 Urine Drug Screen - In [place] 10:14:54 CDT CPT-06663 Diagnostic evaluation with medical - 44286 10:14:54 CDT CPT-09576 Handling of specimen for transfer 12:49:35 NURSE CARE MANAGER CPT-93275 Venipuncture 12:49:35 NURSE CARE MANAGER
[2018-09-15] MEDS ORDERED: IBUPROFEN 400 MG TAB ONE (21:25)
--- NOTE | 2018-09-15 22:13 | ER ---
Nurse's Notes [facility] Name: Annalee Sanabria Age: 58 yrs Sex: Female : 1960 Arrival Date: 09/15/2018 Time: 19:30 Bed 25 Private MD: Diagnosis: Acute upper respiratory infection, unspecified Presentation: 09/15 20:16 Presenting complaint: Patient states: Sore throat, painful cough, fever since aj1 yesterday. Denies N/V. Transition of care: patient was not received from another setting of care. Onset of symptoms was September 14, 2017. Risk Assessment: Do you want to hurt yourself or someone else? Patient reports no desire to harm self or others. Initial Sepsis Screen: Does the patient meet any 2 criteria? No. Patient's initial sepsis screen is negative. Does the patient have a suspected source of infection? Yes: Productive cough/pneumonia. Care prior to arrival: None. 20:16 Method Of Arrival: EMS: [facility] aj1 20:16 Acuity: ALIYA 4 aj1 Triage Assessment: 20:20 General: Appears in no apparent distress. uncomfortable, Behavior is calm, cooperative, aj1 appropriate for age. Pain: Complains of pain in left aspect of posterior pharynx and right aspect of posterior pharynx. EENT: Reports sore throat, cough. Neuro: Level of Consciousness is awake, alert, obeys commands, Oriented to person, place, time, situation. Cardiovascular: Patient's skin is warm and dry. Respiratory: Airway is patent Respiratory effort is even, unlabored, Respiratory pattern is regular, symmetrical. Historical: - Allergies: 20:20 PENICILLINS; aj1 - Home Meds: 20:20 Cipro Oral [Active]; Flagyl Oral [Active]; duloxetine Oral [Active]; lisinopril Oral aj1 [Active]; Risperdal Oral [Active]; Metformin Oral [Active]; amlodipine oral [Active]; - PMHx: 20:20 Hypertension; Diverticulitis; Asthma; Diabetes - NIDDM; aj1 - Immunization history:: Flu vaccine is up to date. - Social history:: Smoking status: Patient uses tobacco products, 6 cigarettes per day. - Ebola Screening: : Patient denies travel to an Ebola-affected area in the 21 days before illness onset. Screenin:50 Abuse screen: Denies threats or abuse. Denies injuries from another. Nutritional rv screening: No deficits noted. Tuberculosis screening: No symptoms or risk factors identified. Fall Risk None identified. Assessment: 20:46 General: Appears in no apparent distress. uncomfortable, ill, Behavior is restless. rv Pain: Denies pain. Neuro: Level of Consciousness is awake, alert, obeys commands, Oriented to person, place, time, situation. Cardiovascular: Capillary refill < 3 seconds. Respiratory: Airway is patent Breath sounds are clear bilaterally. GI: No signs and/or symptoms were reported involving the gastrointestinal system. : No signs and/or symptoms were reported regarding the genitourinary system. EENT: Throat is clear. Derm: Skin is intact. Musculoskeletal: No signs and/or symptoms reported regarding the musculoskeletal system. 22:32 Reassessment: Patient appears in no apparent distress at this time. Patient and/or rv family updated on plan of care and expected duration. Pain level reassessed. Patient is alert, oriented x 3, equal unlabored respirations, skin warm/dry/pink. Respiratory: Airway is patent. Vital Signs: 20:20 BP 141 / 101; Pulse 91; Resp 20; Temp 99.5; Pulse Ox 99% on R/A; Weight 67.13 kg (R); aj1 Height 5 ft. 0 in. (152.40 cm) (R); Pain 10/10; 20:45 Pulse Ox 99% on R/A; cp 22:34 BP 145 / 78 RA Supine; Pulse 94; Resp 16 S; Temp 99.5(O); Pulse Ox 100% on R/A; rv 20:20 Body Mass Index 28.90 (67.13 kg, 152.40 cm) aj1 ED Course: 19:30 Patient arrived in ED. do 20:18 Triage completed. aj1 20:20 Arm band placed on Patient placed in waiting room, Patient notified of wait time. aj1 20:41 Emiliano Mccullough, VICENTA is Primary Nurse. rv 20:49 Patient has correct armband on for positive identification. Bed in low position. Call rv light in reach. Side rails up X 1. Pulse ox on. NIBP on. 20:59 Quang Perez PA is PHCP. cp 20:59 Robert Sims MD is Attending Physician. cp 21:32 X-ray completed. Patient tolerated procedure well. Patient moved back from radiology. 1 21:33 XRAY Chest Pa And Lat (2 Views) In Process Unspecified. EDMS 22:33 No provider procedures requiring assistance completed. Patient did not have IV access rv during this emergency room visit. Administered Medications: 21:20 Drug: Ibuprofen 800 mg Route: PO; rv 22:34 Follow up: Response: Temperature is decreased rv 22:25 Drug: Tessalon Perle 200 mg Route: PO; rv 22:35 Follow up: Response: Medication administered at discharge. rv Outcome: 22:12 Discharge ordered by MD. cp 22:33 Discharged to Rehab Facility rv 22:33 Condition: good 22:33 Discharge instructions given to patient, Instructed on discharge instructions, follow up and referral plans. medication usage, Demonstrated understanding of instructions, follow-up care, medications, Prescriptions given X 2. 22:33 Patient left the ED. rv Signatures: Dispatcher [employer] EDMS Mary Ellen Dent, RN RN 1 Shanthi Cooper 1 Quang Perez PA PA Alexia Torres Ronaldo, RN RN rv
--- NOTE | 2018-09-15 22:13 | EDPHYS ---
Physician Documentation [facility] Name: Annalee Sanabria Age: 58 yrs Sex: Female : 1960 Arrival Date: 09/15/2018 Time: 19:30 Bed 25 Private MD: ED Physician Robert Sims HPI: 09/15 20:35 This 58 yrs old Female presents to ER via EMS with complaints of Sore Throat. cp 20:35 The patient presents with sore throat. The patient describes throat pain as constant. cp Onset: The symptoms/episode began/occurred yesterday. Severity of symptoms: in the emergency department the symptoms are unchanged, despite home interventions. Associated signs and symptoms: Pertinent positives: cough, fever, Pertinent negatives diarrhea, dysphagia, vomiting. Historical: - Allergies: 20:20 PENICILLINS; aj1 - Home Meds: 20:20 Cipro Oral [Active]; Flagyl Oral [Active]; duloxetine Oral [Active]; lisinopril Oral aj1 [Active]; Risperdal Oral [Active]; Metformin Oral [Active]; amlodipine oral [Active]; - PMHx: 20:20 Hypertension; Diverticulitis; Asthma; Diabetes - NIDDM; aj1 - Immunization history:: Flu vaccine is up to date. - Social history:: Smoking status: Patient uses tobacco products, 6 cigarettes per day. - Ebola Screening: : Patient denies travel to an Ebola-affected area in the 21 days before illness onset. ROS: 20:40 Constitutional: Negative for fever, poor PO intake. cp 20:40 Eyes: Negative for injury, pain, redness, and discharge. cp 20:40 ENT: Positive for sore throat, Negative for drainage from ear(s), ear pain, difficulty swallowing, difficulty handling secretions. 20:40 Cardiovascular: Positive for chest pain, with cough, Negative for edema, palpitations. 20:40 Respiratory: Positive for cough, "sounds productive", Negative for shortness of breath, wheezing. 20:40 Abdomen/GI: Negative for abdominal pain, nausea, vomiting, and diarrhea. 20:40 Back: Negative for pain at rest, pain with movement. 20:40 : Negative for urinary symptoms. 20:40 Skin: Negative for cellulitis, rash. 20:40 Neuro: Negative for altered mental status, dizziness, headache, weakness. 20:40 All other systems are negative. Exam: 20:45 Constitutional: The patient appears in no acute distress, alert, awake, cp non-diaphoretic, non-toxic, well developed, well nourished. 20:45 Head/Face: Normocephalic, atraumatic. cp 20:45 Eyes: Periorbital structures: appear normal, Conjunctiva: normal, no exudate, no injection, Sclera: no appreciated abnormality, Lids and lashes: appear normal, bilaterally. 20:45 ENT: External ear(s): are unremarkable, Ear canal(s): are normal, clear, TM's: bulging, is not appreciated, bilaterally, dullness, bilaterally, erythema, is not appreciated, bilaterally, Nose: is normal, Mouth: Lips: moist, Oral mucosa: pink and intact, moist, Posterior pharynx: Airway: no evidence of obstruction, patent, Tonsils: with erythema, no enlargement, no exudate, Uvula: midline, swelling, is not appreciated, erythema, that is moderate, exudate, is not appreciated. 20:45 Neck: ROM/movement: is normal, is supple, without pain, no range of motions limitations, no meningismus, no nuchal rigidity, Lymph nodes: no appreciated lymphadenopathy. 20:45 Chest/axilla: Inspection: normal, Palpation: is normal, no crepitus, no tenderness. 20:45 Cardiovascular: Rate: normal, Rhythm: regular. 20:45 Respiratory: the patient does not display signs of respiratory distress, Respirations: normal, no use of accessory muscles, no retractions, no splinting, no tachypnea, labored breathing, is not present, Breath sounds: decreased breath sounds, are not appreciated, stridor, is not appreciated, + upper airway congestion. wheezing: is not appreciated. 20:45 Abdomen/GI: Exam negative for discomfort, distension, guarding, Inspection: abdomen appears normal. 20:45 Skin: no rash present. Vital Signs: 20:20 BP 141 / 101; Pulse 91; Resp 20; Temp 99.5; Pulse Ox 99% on R/A; Weight 67.13 kg (R); aj1 Height 5 ft. 0 in. (152.40 cm) (R); Pain 10/10; 20:45 Pulse Ox 99% on R/A; cp 22:34 BP 145 / 78 RA Supine; Pulse 94; Resp 16 S; Temp 99.5(O); Pulse Ox 100% on R/A; rv 20:20 Body Mass Index 28.90 (67.13 kg, 152.40 cm) [facility] MDM: 20:59 Patient medically screened. cp 21:00 Differential diagnosis: epiglottitis, group A strep tonsillitis, laryngitis, cp peritonsillar abscess retropharyngeal abcess tonsillitis, upper respiratory infection, uvulitis, viral syndrome pneumonia. 22:10 Data reviewed: vital signs, nurses notes, lab test result(s), radiologic studies, plain cp films, and as a result, I will discharge patient. 22:10 Test interpretation: by ED physician or midlevel provider: plain radiologic studies. cp Counseling: I had a detailed discussion with the patient and/or guardian regarding: the historical points, exam findings, and any diagnostic results supporting the discharge/admit diagnosis, lab results, radiology results, to return to the emergency department if symptoms worsen or persist or if there are any questions or concerns that arise at home. ED course: VSS. Chest xray negative for infiltrates. Will discharge to home for continued monitoring. 09/15 20:21 Order name: Flu; Complete Time: 23:08 [facility] 09/15 20:21 Order name: Strep; Complete Time: 23:08 [facility] 09/15 21:05 Order name: XRAY Chest Pa And Lat (2 Views) cp 09/15 21:30 Order name: Throat Culture EDMS Administered Medications: 21:20 Drug: Ibuprofen 800 mg Route: PO; rv 22:34 Follow up: Response: Temperature is decreased rv 22:25 Drug: Tessalon Perle 200 mg Route: PO; rv 22:35 Follow up: Response: Medication administered at discharge. rv Disposition: 09/15/18 22:12 Discharged to Home. Impression: Acute upper respiratory infection, unspecified. - Condition is Stable. - Discharge Instructions: Upper Respiratory Infection, Adult. - Prescriptions for Ibuprofen 800 mg Oral Tablet - take 1 tablet by ORAL route every 8 hours As needed take with food; 30 tablet. Tessalon Perles 100 mg Oral Capsule - take 2 capsule by ORAL route every 8 hours As needed; 20 capsule. - Medication Reconciliation Form, Thank You Letter, Antibiotic Education, Prescription Opioid Use form. - Follow up: Private Physician; When: 1 - 2 days; Reason: Worsening of condition. - Problem is new. - Symptoms have improved. Signatures: Dispatcher [employer] Mary Ellen Allan RN RN aj1 Robert Sims MD MD pkl Page, Corey, PA PA cp Vicente, Ronaldo, RN RN rv Corrections: (The following items were deleted from the chart) 22:33 22:12 09/15/2018 22:12 Discharged to Home. Impression: Acute upper respiratory rv infection, unspecified. Condition is Stable. Forms are Medication Reconciliation Form, Thank You Letter, Antibiotic Education, Prescription Opioid Use. Follow up: Private Physician; When: 1 - 2 days; Reason: Worsening of condition. Problem is new. Symptoms have improved. cp
[2018-09-15] MEDS ORDERED: BENZONATATE 100 MG CAP PO ONE (22:35)
--- NOTE | 2018-09-16 07:38 | RAD REPORT ---
EXAM DESCRIPTION: RAD - Chest Pa And Lat (2 Views) - 09/15/2018 9:32 pm CLINICAL HISTORY: Sore throat, painful cough, fever COMPARISON: September 07, 2018 TECHNIQUE: PA and lateral views of the chest were obtained. FINDINGS: The lungs are clear of a focal infiltrate or mass. No failure or volume overload. Lung mar kings are similar to comparison. Heart size is normal and central vasculature is within normal limi ts. No pleural effusion or pneumothorax seen. No acute bony finding noted. No aortic abnormality. IMPRESSION: No acute cardiopulmonary process. No significant interval change.
== END 2018-09-15 22:33 | disposition home or self-care (01) ==
LOC: ER 19:26
DX: J06.9 Acute upper respiratory infection, unspecified (principal); I10 Essential (primary) hypertension; E11.9 Type 2 diabetes mellitus without complications; J45.909 Unspecified asthma, uncomplicated; Z88.0 Allergy status to penicillin; F17.210 Nicotine dependence, cigarettes, uncomplicated
CPT/HCPCS: 71046; 87070; 87081; 87804; 99284